=== PATIENT | female | born 1945 | race African-American/Black ===

== ENCOUNTER → 2017-09-06 | Outpatient (CLI) | payer OTHER ==
[2017-09-06] MEDS: IOHEXOL 240 MG/ML 50ML VIAL. PO ×2 (10:35)
[2017-09-06] MEDS: IOHEXOL 300 MG/ML 100ML VIAL. IV ×2 (11:07)
[2017-09-06 11:17] LABS: ISTAT CREATININE 0.7 mg/dL (0.6-1.1)
== END | disposition home or self-care (01) ==
LOC: KCIC CT 09:48
DX: K57.30 Diverticulosis of large intestine without perforation or abscess without bleeding (principal); K76.0 Fatty (change of) liver, not elsewhere classified; R16.0 Hepatomegaly, not elsewhere classified; K44.9 Diaphragmatic hernia without obstruction or gangrene; K76.9 Liver disease, unspecified; I51.7 Cardiomegaly; J98.11 Atelectasis
CPT/HCPCS: 74177; 82565; Q9966; Q9967

== ENCOUNTER 2018-10-17 07:48 | Inpatient (IN) | payer MEDICARE, OTHER ==
[~2018-10-17] VITALS: Ht 160 cm; Wt 99.8 kg
[~2018-10-17 07:48] MED LIST: ASCO1CAP2 PO; ASPI-482 PO; CARV25TA2 PO; DICY10CA3 PO; FERR325T58 PO; GARL10002 PO; Hydrocodone/Acetaminophen PO; LOSA100T14 PO; LOSA1TAB22 PO; LOSA25TA54 PO; MELO15TA23 PO; MULT-212 PO; OMEP40CA5 PO; OXYC1TAB15 PO; UBID50CA5 PO; WARF1TAB74 PO
[2018-10-17] MEDS ORDERED: IV NORMAL SALINE 1000ML BAG 1,000 ML IV SCH (08:11)
[2018-10-17] MEDS ORDERED: METOPROLOL TARTRATE 5 MG/5 ML VIAL. IVP ONE (08:15)
[2018-10-17] MEDS ORDERED: ASPIRIN CHEWABLE 81 MG TABLET. PO ONE (08:15)
--- NOTE | 2018-10-17 08:20 | PHYS DOC ---
Past Medical History Past Medical History: Arthritis, Asthma, Cancer, Diverticulitis, GERD, High Cholesterol, Hypertension, UTI Additional Past Medical Histor: esophagus CA Past Surgical History: Cholecystectomy, Knee Replacement, Tonsillectomy Alcohol Use: None Drug Use: None Adult General Chief Complaint Chief Complaint: ABDOMINAL PAIN HPI HPI Patient is a 73-year-old female who presents to the emergency department for evaluation. She states the past day or so she has had some left-sided abdominal pain, and about 3 hours before coming to the emergency department developed some anterior chest discomfort, with some radiation to her left arm and shoulder. She did have some shortness of breath which has resolved. There are no particular alleviating or exacerbating factors to the patient's symptoms. She denies any pleuritic pain. She has not had any cough, nausea, vomiting, diarrhea, or urinary symptoms. She has a history of hypertension, but states she has missed her medication for the past few days. Review of Systems Review of Systems Constitutional: Denies fever or chills [] Eyes: Denies change in visual acuity, redness, or eye pain [] HENT: Denies nasal congestion or sore throat [] Respiratory: Denies cough or runny chest pain[] Cardiovascular: No additional information not addressed in HPI [] GI: Denies nausea, vomiting, bloody stools or diarrhea [] : Denies dysuria or hematuria [] Musculoskeletal: Denies back pain or joint pain [] Integument: Denies rash or skin lesions [] Neurologic: Denies headache, focal weakness or sensory changes [] Endocrine: Denies polyuria or polydipsia [] All other systems were reviewed and found to be within normal limits, except as documented in this note. Current Medications Current Medications Current Medications Medications (Trade) Dose Ordered Sig/[facility] Start Time Stop Time Status Last Admin Dose Admin Aspirin (Children'S Aspirin) 162 mg 1X ONCE 10/17/18 08:15 10/17/18 08:16 DC 10/17/18 08:26 162 MG Fentanyl Citrate (Fentanyl 2ml Vial) 50 mcg PRN Q15MIN PRN 10/17/18 08:15 10/18/18 08:14 10/17/18 08:23 50 MCG Metoprolol Tartrate (Lopressor Vial) 5 mg 1X ONCE 10/17/18 08:15 10/17/18 08:16 DC 10/17/18 08:26 5 MG Sodium Chloride 1,000 ml @ 100 mls/hr Q10H 10/17/18 08:11 10/17/18 18:10 10/17/18 08:23 100 MLS/HR Allergies Allergies Allergies Coded Allergies Type Severity Reaction Last Updated Verified iodine Allergy Intermediate Rash 02/11/15 Yes acetaminophen Adverse Reaction Severe NAUSEA 02/11/15 Yes hydrocodone Adverse Reaction Severe NAUSEA 02/11/15 Yes morphine Adverse Reaction Severe NAUSEA 02/11/15 Yes Physical Exam Physical Exam PHYSICAL EXAM: CONSTITUTIONAL: Well developed, well nourished HEAD: normocephalic, atraumatic EENT: PERRL, EOMI. Conjunctivae normal color, sclerae non-icteric; moist mucous membranes. NECK: Supple, non-tender; no meningismus. LUNGS: Lungs CTA, breathing even and unlabored. Normal air movement. HEART: Regular rate and rhythm, no murmur CHEST: No deformity; non-tender ABDOMEN: The abdomen is soft, n there is tenderness to palpation of the left mid and lower abdomen, without any rebound or guarding, normal bowel sounds are present, no masses or bruits. EXTREM: Normal ROM; no deformity, no calf tenderness. Normal pulses palpable in all extremities. There is no pedal edema. SKIN: No rash; no diaphoresis NEURO: Alert; normal speech and cognition; CN's grossly intact; strength grossly intact without focal deficit. BACK: No CVA TTP. Current Patient Data Vital Signs Vital Signs Date Time Temp Pulse Resp B/P (MAP) Pulse Ox O2 Delivery O2 Flow Rate FiO2 10/17/18 09:02 67 20 196/81 (119) 97 Room Air 10/17/18 07:52 98.3 98.3 Lab Values Laboratory Tests Test 10/17/18 07:55 10/17/18 08:05 Urine Collection Type Void Urine Color Yellow Urine Clarity Clear Urine pH 7.0 Urine Specific [place] 1.010 Urine Protein Negative mg/dL (NEG-TRACE) Urine Glucose (UA) Negative mg/dL (NEG) Urine Ketones (Stick) Negative mg/dL (NEG) Urine Blood Negative (NEG) Urine Nitrite Negative (NEG) Urine Bilirubin Negative (NEG) Urine Urobilinogen Dipstick 0.2 mg/dL (0.2 mg/dL) Urine Leukocyte Esterase Negative (NEG) Urine RBC Occ /HPF (0-2) Urine WBC 1-4 /HPF (0-4) Urine Squamous Epithelial Cells Many /LPF Urine Bacteria Few /HPF (0-FEW) White Blood Count 8.5 x10^3/uL (4.0-11.0) Red Blood Count 4.79 x10^6/uL (3.50-5.40) Hemoglobin 14.1 g/dL (12.0-15.5) Hematocrit 42.8 % (36.0-47.0) Mean Corpuscular Volume 89 fL (79-100) Mean Corpuscular Hemoglobin 30 pg (25-35) Mean Corpuscular Hemoglobin Concent 33 g/dL (31-37) Red Cell Distribution Width 13.1 % (11.5-14.5) Platelet Count 218 x10^3/uL (140-400) Neutrophils (%) (Auto) 54 % (31-73) Lymphocytes (%) (Auto) 34 % (24-48) Monocytes (%) (Auto) 8 % (0-9) Eosinophils (%) (Auto) 3 % (0-3) Basophils (%) (Auto) 1 % (0-3) Neutrophils # (Auto) 4.6 x10^3uL (1.8-7.7) Lymphocytes # (Auto) 2.9 x10^3/uL (1.0-4.8) Monocytes # (Auto) 0.7 x10^3/uL (0.0-1.1) Eosinophils # (Auto) 0.3 x10^3/uL (0.0-0.7) Basophils # (Auto) 0.1 x10^3/uL (0.0-0.2) Prothrombin Time 12.7 SEC (11.7-14.0) Prothrombin Time INR 1.0 (0.8-1.1) Sodium Level 142 mmol/L (136-145) Potassium Level 3.7 mmol/L (3.5-5.1) Chloride Level 101 mmol/L (98-107) Carbon Dioxide Level 31 mmol/L (21-32) Anion Gap 10 (6-14) Blood Urea Nitrogen 9 mg/dL (7-20) Creatinine 0.8 mg/dL (0.6-1.0) Estimated GFR (Cockcroft-Gault) 85.3 BUN/Creatinine Ratio 11 (6-20) Glucose Level 129 mg/dL (70-99) H Calcium Level 9.6 mg/dL (8.5-10.1) Total Bilirubin 0.6 mg/dL (0.2-1.0) Aspartate Amino Transferase (AST) 47 U/L (15-37) H Alanine Aminotransferase (ALT) 57 U/L (14-59) Alkaline Phosphatase 103 U/L (46-116) Creatine Kinase 64 U/L (26-192) Creatine Kinase MB (Mass) < 0.5 ng/mL (0.0-3.6) Creatine Kinase MB Relative Index % (0-4) Troponin I Quantitative < 0.017 ng/mL (0.000-0.055) HA-Uno-X-Type Natriuretic Peptide 23 pg/mL (0-124) Total Protein 8.8 g/dL (6.4-8.2) H Albumin 3.8 g/dL (3.4-5.0) Albumin/Globulin Ratio 0.8 (1.0-1.7) L Lipase 75 U/L (73-393) Laboratory Tests 10/17/18 08:05 Laboratory Tests 10/17/18 08:05 EKG EKG Normal sinus rhythm at a rate of 86 beats for minute, normal axis, normal intervals, poor anterior R-wave progression without acute ischemic ST/T changes. Nonspecific changes are present.[] Radiology/Procedures Radiology/Procedures [PROCEDURE: PORTABLE CHEST 1V PORTABLE CHEST 1V Clinical Indication: CHEST PAIN AND JAW PAIN ON LEFT SIDE SINCE EARLY AM Comparison: Two-view chest, January 27, 2015. Findings: The cardiomediastinal silhouette is normal. Lungs are clear. There is no pneumothorax. No pleural effusion is appreciated. No acute bone abnormality. Degenerative endplate spurring of the thoracic spine. IMPRESSION: No acute cardiopulmonary process.] PROCEDURE: CT ABDOMEN PELVIS WO CONTRAST CT abdomen pelvis without contrast dated 10/17/2018. Comparison made to 09/06/2017. CLINICAL INDICATION: Left-sided pain. TECHNIQUE: Contiguous axial imaging the abdomen and pelvis performed without the administration of IV or oral contrast. One or more of the following individualized dose reduction techniques were utilized for this examination: 1. Automated exposure control 2. Adjustment of the mA and/or kV according to patient size 3. Use of iterative reconstruction technique. FINDINGS: Limited images of lung bases are clear. Heart size upper limits of normal. No pleural or pericardial effusion. Solid abdominal viscera not well evaluated in the absence of contrast material. There are vague low-density foci scattered within the left and right lobe liver that are indeterminate but unchanged from prior study. No biliary ductal dilatation. The gallbladder is surgically absent. Mild prominence of the extra hepatic biliary tree, unchanged from prior exam. Spleen is normal in size. Pancreas, adrenal glands and kidneys are unremarkable. No hydronephrosis. Unopacified GI tract normal in caliber and contour. No focal bowel wall thickening. Scattered diverticula throughout the colon. No paracolonic inflammatory changes in the appendix is normal in caliber. No ascites or lymphadenopathy. Abdominal aorta normal in caliber. Images the pelvis show nondistended urinary bladder. Uterus and adnexa are unremarkable. No free pelvic fluid or pelvic lymphadenopathy. Bone windows show no acute findings. Mild multilevel spondylosis. IMPRESSION: 1. No acute abnormality of abdomen or pelvis. Normal appendix. 2. Diverticulosis with no evidence of acute diverticulitis. 3. There are a few small low-density foci scattered throughout the liver that are indeterminate but unchanged from the prior exam and probably benign. Course & Med Decision Making Course & Med Decision Making Pertinent Labs and Imaging studies reviewed. (See chart for details) [10:15 AM: The patient's condition remained stable. I do not have a clear Patient for her symptoms, I discussed the case with Dr Juan, who is covering for her PCP, who will admit the patient for further cardiac evaluation. Her blood pressure is currently 172/74.] Dragon Disclaimer Dragon Disclaimer This electronic medical record was generated, in whole or in part, using a voice recognition dictation system. Departure Departure Impression: Primary Impression: Chest pain Additional Impression: Abdominal pain Disposition: ADMITTED INPATIENT Admitting Physician: Jose Luis Juan Condition: STABLE Referrals: NO PCP (PCP) Problem Qualifiers TASHIA SINGLETARY MD Oct 17, 2018 08:20
[2018-10-17] MEDS: fentaNYL PF VIAL 100 MCG/2 ML VIAL IV PRN ×2 (08:23→10:59)
[2018-10-17 08:32] LABS: BASO # 0.1 x10^3/uL (0.0-0.2); BASO % 1 % (0-3); EOS # 0.3 x10^3/uL (0.0-0.7); EOS % 3 % (0-3); HEMATOCRIT 42.8 % (36.0-47.0); HEMOGLOBIN 14.1 g/dL (12.0-15.5); LYMPH # 2.9 x10^3/uL (1.0-4.8); LYMPH % 34 % (24-48); MEAN CORPUSCULAR HEMOGLOBIN 30 pg (25-35); MEAN CORPUSCULAR HGB CONC 33 g/dL (31-37); MEAN CORPUSCULAR VOLUME 89 fL (79-100); MONO # 0.7 x10^3/uL (0.0-1.1); MONO % 8 % (0-9); NEUT # 4.6 x10^3uL (1.8-7.7); NEUT % 54 % (31-73); PLATELET COUNT 218 x10^3/uL (140-400); RED BLOOD COUNT 4.79 x10^6/uL (3.50-5.40); RED CELL DISTRIBUTION WIDTH 13.1 % (11.5-14.5); WHITE BLOOD COUNT 8.5 x10^3/uL (4.0-11.0)
[2018-10-17 08:32] LABS: BILIRUBIN,URINE NEGATIVE (NEG); CLARITY,URINE CLEAR; COLOR,URINE YELLOW; NITRITE,URINE NEGATIVE (NEG); PROTEIN,URINE NEGATIVE (NEG-TRACE); UROBILINOGEN,URINE 0.2 mg/dL (0.2 mg/dL)
[2018-10-17 08:35] LABS: CALCIUM 9.6 mg/dL (8.5-10.1); CREATININE 0.8 mg/dL (0.6-1.0); GFR 85.3; POTASSIUM 3.7 mmol/L (3.5-5.1)
[2018-10-17 08:36] LABS: PROTHROMBIN TIME PATIENT 12.7 SEC (11.7-14.0)
--- NOTE | 2018-10-17 08:38 | RAD ---
PORTABLE CHEST 1V Clinical Indication: CHEST PAIN AND JAW PAIN ON LEFT SIDE SINCE EARLY AM Comparison: Two-view chest, January 27, 2015. Findings: The cardiomediastinal silhouette is normal. Lungs are clear. There is no pneumothorax. No pleural effusion is appreciated. No acute bone abnormality. Degenerative endplate spurring of the thoracic spine. IMPRESSION: No acute cardiopulmonary process. Electronically signed by: Yinka Recio MD (10/17/2018 8:35 AM) [id number]
[2018-10-17 08:41] LABS: ALBUMIN 3.8 g/dL (3.4-5.0); ALBUMIN/GLOBULIN RATIO 0.8 (1.0-1.7); TOTAL BILIRUBIN 0.6 mg/dL (0.2-1.0); TOTAL PROTEIN 8.8 g/dL (6.4-8.2)
[2018-10-17 08:44] LABS: BACTERIA,URINE FEW /HPF (0-FEW); RBC,URINE OCC /HPF (0-2); SQUAMOUS EPITHELIAL CELL,UR MANY /LPF
[2018-10-17 08:55] LABS: CREATINE KINASE 64 U/L (26-192)
--- NOTE | 2018-10-17 09:11 | EKG ---
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
--- NOTE | 2018-10-17 09:47 | RAD ---
CT abdomen pelvis without contrast dated 10/17/2018. Comparison made to 09/06/2017. CLINICAL INDICATION: Left-sided pain. TECHNIQUE: Contiguous axial imaging the abdomen and pelvis performed without the administration of IV or oral contrast. One or more of the following individualized dose reduction techniques were utilized for this examination: 1. Automated exposure control 2. Adjustment of the mA and/or kV according to patient size 3. Use of iterative reconstruction technique. FINDINGS: Limited images of lung bases are clear. Heart size upper limits of normal. No pleural or pericardial effusion. Solid abdominal viscera not well evaluated in the absence of contrast material. There are vague low-density foci scattered within the left and right lobe liver that are indeterminate but unchanged from prior study. No biliary ductal dilatation. The gallbladder is surgically absent. Mild prominence of the extra hepatic biliary tree, unchanged from prior exam. Spleen is normal in size. Pancreas, adrenal glands and kidneys are unremarkable. No hydronephrosis. Unopacified GI tract normal in caliber and contour. No focal bowel wall thickening. Scattered diverticula throughout the colon. No paracolonic inflammatory changes in the appendix is normal in caliber. No ascites or lymphadenopathy. Abdominal aorta normal in caliber. Images the pelvis show nondistended urinary bladder. Uterus and adnexa are unremarkable. No free pelvic fluid or pelvic lymphadenopathy. Bone windows show no acute findings. Mild multilevel spondylosis. IMPRESSION: 1. No acute abnormality of abdomen or pelvis. Normal appendix. 2. Diverticulosis with no evidence of acute diverticulitis. 3. There are a few small low-density foci scattered throughout the liver that are indeterminate but unchanged from the prior exam and probably benign. Electronically signed by: David Arias MD (10/17/2018 9:44 AM) [id number]
[2018-10-17] MEDS ORDERED: amLODIPine BESYLATE 5 MG TABLET PO ONE (10:45)
[2018-10-17] MEDS ORDERED: OMEP40CA5 PO (14:44)
[2018-10-17] MEDS ORDERED: AMLO5TAB10 PO (14:44)
[2018-10-17] MEDS ORDERED: DICY20TA3 PO (14:44)
--- NOTE | 2018-10-17 14:55 | PDOC2 ---
JEANETTE BORDEN INDEPENDENT CONSULTANT 10/17/18 1455: CARDIAC CONSULT DATE OF CONSULT Date of Consult DATE: 10/17/18 TIME: 14:53 REASON FOR CONSULT Reason for Consult: Chest pain REFERRING PHYSICIAN Referring Physician: Dr. Abarca SOURCE Source: Chart review, Patient HISTORY OF PRESENT ILLNESS HISTORY OF PRESENT ILLNESS This is a 73 yo female who presented with abdominal pain. Reports having left lower quadrant pain that radiates around to her back. Present for the last couple of days. Has been constant. This morning, developed left chest pain. Radiated to her left neck and to her left shoulder. Associated with shortness of breath and dizziness. No diaphoresis , palpitations, or nausea/vomiting. No specific worsening factors. Does have a history of hypertension. Missed her medications the last couple of days. BP significantly elevated upon arrival, which patient reports as usual for her when she is in pain. Reports having occasional palpitations, irregular heart beat. NO diagnosis of AFIB. PAST MEDICAL HISTORY Cardiovascular: CHF, HTN, Hyperlipidemia Pulmonary: No pertinent hx CENTRAL NERVOUS SYSTEM: Other (no pertinent hx) GI: Diverticulosis, GERD, Other (Barretts esophagus ) Heme/Onc: No pertinent hx Hepatobiliary: No pertinent hx Psych: No pertinent hx Musculoskeletal: Osteoarthritis Rheumatologic: No pertinent hx Infectious disease: No pertinent hx ENT: No pertinent hx Renal/: No pertinent hx Endocrine: Diabetes Dermatology: No pertinent hx PAST SURGICAL HISTORY Past Surgical History: Cholecystectomy, Total knee replacement (bilateral ), Tonsillectomy FAMILY HISTORY Family History: Coronary Artery Disease, Heart Disease, Hypertension SOCIAL HISTORY Smoke: No ALCOHOL: none Drugs: None Lives: Alone CURRENT MEDICATIONS CURRENT MEDICATIONS Current Medications Medications (Trade) Dose Ordered Sig/Yvan Route PRN Reason Start Time Stop Time Status Last Admin Dose Admin Aspirin (Children'S Aspirin) 162 mg 1X ONCE PO 10/17/18 08:15 10/17/18 08:16 DC 10/17/18 08:26 Metoprolol Tartrate (Lopressor Vial) 5 mg 1X ONCE IVP 10/17/18 08:15 10/17/18 08:16 DC 10/17/18 08:26 Fentanyl Citrate (Fentanyl 2ml Vial) 50 mcg PRN Q15MIN PRN IV PAIN GREATER THAN 10/1510/17/18 08:15 10/18/18 08:14 10/17/18 10:59 Sodium Chloride 1,000 ml @ 100 mls/hr Q10H IV 10/17/18 08:11 10/17/18 18:10 10/17/18 08:23 Amlodipine Besylate (Norvasc) 5 mg 1X ONCE PO 10/17/18 10:45 10/17/18 10:46 DC 10/17/18 10:58 ALLERGIES ALLERGIES: Coded Allergies: iodine (Verified Allergy, Intermediate, Rash, 02/11/15) acetaminophen (Verified Adverse Reaction, Severe, NAUSEA, 02/11/15) hydrocodone (Verified Adverse Reaction, Severe, NAUSEA, 02/11/15) morphine (Verified Adverse Reaction, Severe, NAUSEA, 02/11/15) ROS Review of System 14 point ROS conducted with pertinent positives noted above in HPI. PHYSICAL EXAM General: Alert, Oriented X3, Cooperative, No acute distress HEENT: Atraumatic, Mucous membr. moist/pink Lungs: Clear to auscultation, Normal air movement Heart: Regular rate, Normal S1, Normal S2 Abdomen: Soft, No tenderness Extremities: No edema, Normal pulses Skin: No significant lesion Neuro: Normal speech, Strength at 5/5 X4 ext, Sensation intact Psych/Mental Status: Mental status NL, Mood NL MUSCULOSKELETAL: Osteoarthritic changes both hands VITALS VITALS Vital Signs Date Time Temp Pulse Resp B/P (MAP) Pulse Ox O2 Delivery O2 Flow Rate FiO2 10/17/18 10:58 71 203/100 10/17/18 10:00 18 96 Room Air 10/17/18 07:52 98.3 98.3 LABS Lab: Laboratory Tests Test 10/17/18 07:55 10/17/18 08:05 10/17/18 13:35 Urine Collection Type Void Urine Color Yellow Urine Clarity Clear Urine pH 7.0 Urine Specific [place] 1.010 Urine Protein Negative mg/dL (NEG-TRACE) Urine Glucose (UA) Negative mg/dL (NEG) Urine Ketones (Stick) Negative mg/dL (NEG) Urine Blood Negative (NEG) Urine Nitrite Negative (NEG) Urine Bilirubin Negative (NEG) Urine Urobilinogen Dipstick 0.2 mg/dL (0.2 mg/dL) Urine Leukocyte Esterase Negative (NEG) Urine RBC Occ /HPF (0-2) Urine WBC 1-4 /HPF (0-4) Urine Squamous Epithelial Cells Many /LPF Urine Bacteria Few /HPF (0-FEW) White Blood Count 8.5 x10^3/uL (4.0-11.0) Red Blood Count 4.79 x10^6/uL (3.50-5.40) Hemoglobin 14.1 g/dL (12.0-15.5) Hematocrit 42.8 % (36.0-47.0) Mean Corpuscular Volume 89 fL (79-100) Mean Corpuscular Hemoglobin 30 pg (25-35) Mean Corpuscular Hemoglobin Concent 33 g/dL (31-37) Red Cell Distribution Width 13.1 % (11.5-14.5) Platelet Count 218 x10^3/uL (140-400) Neutrophils (%) (Auto) 54 % (31-73) Lymphocytes (%) (Auto) 34 % (24-48) Monocytes (%) (Auto) 8 % (0-9) Eosinophils (%) (Auto) 3 % (0-3) Basophils (%) (Auto) 1 % (0-3) Neutrophils # (Auto) 4.6 x10^3uL (1.8-7.7) Lymphocytes # (Auto) 2.9 x10^3/uL (1.0-4.8) Monocytes # (Auto) 0.7 x10^3/uL (0.0-1.1) Eosinophils # (Auto) 0.3 x10^3/uL (0.0-0.7) Basophils # (Auto) 0.1 x10^3/uL (0.0-0.2) Prothrombin Time 12.7 SEC (11.7-14.0) Prothromb Time International Ratio 1.0 (0.8-1.1) Sodium Level 142 mmol/L (136-145) Potassium Level 3.7 mmol/L (3.5-5.1) Chloride Level 101 mmol/L (98-107) Carbon Dioxide Level 31 mmol/L (21-32) Anion Gap 10 (6-14) Blood Urea Nitrogen 9 mg/dL (7-20) Creatinine 0.8 mg/dL (0.6-1.0) Estimated GFR (Cockcroft-Gault) 85.3 BUN/Creatinine Ratio 11 (6-20) Glucose Level 129 mg/dL (70-99) Calcium Level 9.6 mg/dL (8.5-10.1) Total Bilirubin 0.6 mg/dL (0.2-1.0) Aspartate Amino Transf (AST/SGOT) 47 U/L (15-37) Alanine Aminotransferase (ALT/SGPT) 57 U/L (14-59) Alkaline Phosphatase 103 U/L (46-116) Creatine Kinase 64 U/L (26-192) Creatine Kinase MB (Mass) < 0.5 ng/mL (0.0-3.6) Creatine Kinase MB Relative Index % (0-4) Troponin I Quantitative < 0.017 ng/mL (0.000-0.055) < 0.017 ng/mL (0.000-0.055) II-Nzm-Y-Type Natriuretic Peptide 23 pg/mL (0-124) Total Protein 8.8 g/dL (6.4-8.2) Albumin 3.8 g/dL (3.4-5.0) Albumin/Globulin Ratio 0.8 (1.0-1.7) Lipase 75 U/L (73-393) ASSESSMENT/PLAN ASSESSMENT/PLAN 1. Chest pain; mixed feature. Most probably induced by #2 secondary to combination of miss medications and acute pain. AMI ruled out 2. Accelerated hypertension; remains elevated 3. Abdominal pain; CT with diverticulosis. No other acute findings 4. Hyperlipidemia Recommendations Resume Norvasc Add lisinopril Hydralazine IV PRN ASA Echo to assess LV systolic function Lipids If echo WNL, consider outpatient ischemic evaluation MASTER PURVIS MD 10/17/18 1753: CARDIAC CONSULT ASSESSMENT/PLAN ASSESSMENT/PLAN Pt. seen and examined. 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 Continue meds. Await echo. EKG unremarkable JEANETTE BORDEN APRN Oct 17, 2018 14:55 MASTER PURVIS MD Oct 17, 2018 17:53
[2018-10-17 15:00] VITALS: BP 157/73
[2018-10-17] MEDS ORDERED: hydrALAZINE 20 MG/ML VIAL. IVP PRN (15:15)
[2018-10-17] MEDS ORDERED: ASPI-612 PO (15:21)
[2018-10-17 19:52] VITALS: BP 144/52
[2018-10-17] MEDS ORDERED: fentaNYL PF VIAL 100 MCG/2 ML VIAL IV PRN (20:00)
[2018-10-17 23:21] VITALS: BP 121/43
[2018-10-18 03:15] VITALS: BP 115/51
[2018-10-18 05:02] LABS: CHOLESTEROL/HDL RATIO 2.8
[2018-10-18 07:00] VITALS: BP 161/77
[2018-10-18] MEDS: ASPIRIN ENTERIC COATED 81 MG TABLET.DR. PO SCH (08:40)
[2018-10-18] MEDS: LISINOPRIL 10 MG TABLET PO SCH (08:40)
[2018-10-18] MEDS ORDERED: LIDO:MAALOX 1:1 20 ML SINGLE DOSE. SWSW ONE (08:45)
--- NOTE | 2018-10-18 08:49 | PDOC1 ---
History and Physical Date of Admission Date of Admission 10/17/18 Identification/Chief Complaint Chief Complaint Abdominal pain that radiated to left chest Source Source: Patient History of Present Illness History of Present Illness Pt states that she has been having a lot of abdominal pain. Pt states that the pain starts at her diaphragm and then was radiating up her left side wrapping around to her back. She says that she has been having this pain for a while, but yesterday got significantly worse. Pt follows with GI for this. Recently was started on dicyclomine; she is unsure if it is helping or not. They had discussed doing some further workup on her but she has not returned for follow up yet. She often has a lot of gas. She is feeling better but is still requiring the IV pain medication to control her pain. Pt states that when she is having significant pain her BP increases. Had regular diet yesterday, clear liquids this morning. Past Medical History Cardiovascular: CHF, HTN, Hyperlipidemia Pulmonary: No pertinent hx CENTRAL NERVOUS SYSTEM: Periperal neuropathy, Other (no pertinent hx) GI: Constipation, Diverticulosis, GERD, Other (Barretts esophagus ) Heme/Onc: No pertinent hx Hepatobiliary: No pertinent hx Psych: No pertinent hx Rheumatologic: No pertinent hx Infectious disease: No pertinent hx ENT: No pertinent hx Renal/: No pertinent hx Endocrine: No pertinent hx Dermatology: No pertinent hx Past Surgical History Past Surgical History: Cholecystectomy, Total knee replacement (bilateral ), Tonsillectomy Family History Family History: Coronary Artery Disease, Heart Disease, Hypertension Social History Smoke: No ALCOHOL: none Drugs: None Current Problem List Problem List Problems Medical Problems: (1) Abdominal pain Status: Acute (2) Chest pain Status: Acute Current Medications Current Medications Current Medications Medications (Trade) Dose Ordered Sig/Yvan Start Time Stop Time Status Last Admin Dose Admin Amlodipine Besylate (Norvasc) 5 mg DAILY 10/18/18 09:00 Aspirin (Children'S Aspirin) 162 mg 1X ONCE 10/17/18 08:15 10/17/18 08:16 DC 10/17/18 08:26 162 MG Aspirin (Ecotrin) 81 mg [id number] 10/18/18 08:00 Fentanyl Citrate (Fentanyl 2ml Vial) 25 mcg PRN Q6HRS PRN 10/17/18 20:00 10/17/18 20:59 25 MCG Hydralazine HCl (Apresoline Inj) 10 mg PRN Q4HRS PRN 10/17/18 15:15 Influenza Virus Vaccine (Afluria Trivalent [id number] Syringe) 0.5 ml ONCE ONCE 10/17/18 15:15 10/17/18 15:16 DC Lisinopril (Prinivil) 10 mg DAILY 10/18/18 09:00 Metoprolol Tartrate (Lopressor Vial) 5 mg 1X ONCE 10/17/18 08:15 10/17/18 08:16 DC 10/17/18 08:26 5 MG Sodium Chloride 1,000 ml @ 100 mls/hr Q10H 10/17/18 08:11 10/17/18 18:10 DC 10/17/18 08:23 100 MLS/HR Allergies Allergies Allergies Coded Allergies Type Severity Reaction Last Updated Verified iodine Allergy Intermediate Rash 02/11/15 Yes acetaminophen Adverse Reaction Severe NAUSEA 02/11/15 Yes hydrocodone Adverse Reaction Severe NAUSEA 02/11/15 Yes morphine Adverse Reaction Severe NAUSEA 02/11/15 Yes ROS Review of System CONSTITUTIONAL: No fever, +chills EYES: No recent changes SKIN: No rash or itching CARDIOVASCULAR: No chest pain, syncope, palpitations, or edema RESPIRATORY: No SOB or cough GASTROINTESTINAL: No vomiting, +nausea, abdominal pain NEUROLOGICAL: No headaches or weakness ENDOCRINE: No cold or heat intolerance GENITOURINARY: No urgency or frequency of urination MUSCULOSKELETAL: No joint pain, +low back pain LYMPHATICS: No enlarged lymph nodes PSYCHIATRIC: No anxiety or depression Physical Exam Physical Exam GEN.: No apparent distress. Alert and oriented. Belching often HEENT: Head is normocephalic, atraumatic NECK: Supple. LUNGS: Clear to auscultation. HEART: RRR, S1, S2 present. Peripheral pulses intact ABDOMEN: Soft, nontender. Positive bowel sounds. EXTREMITIES: Without any cyanosis. NEUROLOGIC: Normal speech, normal tone PSYCHIATRIC: Normal affect, normal mood. SKIN: No ulcerations Vitals Vitals Vital Signs Date Time Temp Pulse Resp B/P (MAP) Pulse Ox O2 Delivery O2 Flow Rate FiO2 10/18/18 07:00 98.2 80 16 161/77 (105) 98 Room Air 98.2 Labs Labs Laboratory Tests Test 10/17/18 07:55 10/17/18 08:05 10/17/18 13:35 10/17/18 18:00 Urine Collection Type Void Urine Color Yellow Urine Clarity Clear Urine pH 7.0 Urine Specific [place] 1.010 Urine Protein Negative mg/dL (NEG-TRACE) Urine Glucose (UA) Negative mg/dL (NEG) Urine Ketones (Stick) Negative mg/dL (NEG) Urine Blood Negative (NEG) Urine Nitrite Negative (NEG) Urine Bilirubin Negative (NEG) Urine Urobilinogen Dipstick 0.2 mg/dL (0.2 mg/dL) Urine Leukocyte Esterase Negative (NEG) Urine RBC Occ /HPF (0-2) Urine WBC 1-4 /HPF (0-4) Urine Squamous Epithelial Cells Many /LPF Urine Bacteria Few /HPF (0-FEW) White Blood Count 8.5 x10^3/uL (4.0-11.0) Red Blood Count 4.79 x10^6/uL (3.50-5.40) Hemoglobin 14.1 g/dL (12.0-15.5) Hematocrit 42.8 % (36.0-47.0) Mean Corpuscular Volume 89 fL (79-100) Mean Corpuscular Hemoglobin 30 pg (25-35) Mean Corpuscular Hemoglobin Concent 33 g/dL (31-37) Red Cell Distribution Width 13.1 % (11.5-14.5) Platelet Count 218 x10^3/uL (140-400) Neutrophils (%) (Auto) 54 % (31-73) Lymphocytes (%) (Auto) 34 % (24-48) Monocytes (%) (Auto) 8 % (0-9) Eosinophils (%) (Auto) 3 % (0-3) Basophils (%) (Auto) 1 % (0-3) Neutrophils # (Auto) 4.6 x10^3uL (1.8-7.7) Lymphocytes # (Auto) 2.9 x10^3/uL (1.0-4.8) Monocytes # (Auto) 0.7 x10^3/uL (0.0-1.1) Eosinophils # (Auto) 0.3 x10^3/uL (0.0-0.7) Basophils # (Auto) 0.1 x10^3/uL (0.0-0.2) Prothrombin Time 12.7 SEC (11.7-14.0) Prothromb Time International Ratio 1.0 (0.8-1.1) Sodium Level 142 mmol/L (136-145) Potassium Level 3.7 mmol/L (3.5-5.1) Chloride Level 101 mmol/L (98-107) Carbon Dioxide Level 31 mmol/L (21-32) Anion Gap 10 (6-14) Blood Urea Nitrogen 9 mg/dL (7-20) Creatinine 0.8 mg/dL (0.6-1.0) Estimated GFR (Cockcroft-Gault) 85.3 BUN/Creatinine Ratio 11 (6-20) Glucose Level 129 mg/dL (70-99) Calcium Level 9.6 mg/dL (8.5-10.1) Total Bilirubin 0.6 mg/dL (0.2-1.0) Aspartate Amino Transf (AST/SGOT) 47 U/L (15-37) Alanine Aminotransferase (ALT/SGPT) 57 U/L (14-59) Alkaline Phosphatase 103 U/L (46-116) Creatine Kinase 64 U/L (26-192) Creatine Kinase MB (Mass) < 0.5 ng/mL (0.0-3.6) Creatine Kinase MB Relative Index % (0-4) Troponin I Quantitative < 0.017 ng/mL (0.000-0.055) < 0.017 ng/mL (0.000-0.055) < 0.017 ng/mL (0.000-0.055) CM-Qgh-S-Type Natriuretic Peptide 23 pg/mL (0-124) Total Protein 8.8 g/dL (6.4-8.2) Albumin 3.8 g/dL (3.4-5.0) Albumin/Globulin Ratio 0.8 (1.0-1.7) Lipase 75 U/L (73-393) Test 10/18/18 03:35 Triglycerides Level 59 mg/dL (0-150) Cholesterol Level 175 mg/dL (0-200) LDL Cholesterol, Calculated 100 mg/dL (0-100) VLDL Cholesterol, Calculated 12 mg/dL (0-40) Non-HDL Cholesterol Calculated 112 mg/dL (0-129) HDL Cholesterol 63 mg/dL (40-60) Cholesterol/HDL Ratio 2.8 Laboratory Tests Test 10/17/18 13:35 10/17/18 18:00 10/18/18 03:35 Troponin I Quantitative < 0.017 ng/mL (0.000-0.055) < 0.017 ng/mL (0.000-0.055) Triglycerides Level 59 mg/dL (0-150) Cholesterol Level 175 mg/dL (0-200) LDL Cholesterol, Calculated 100 mg/dL (0-100) VLDL Cholesterol, Calculated 12 mg/dL (0-40) Non-HDL Cholesterol Calculated 112 mg/dL (0-129) HDL Cholesterol 63 mg/dL (40-60) Cholesterol/HDL Ratio 2.8 VTE Prophylaxis Ordered VTE Prophylaxis Devices: No VTE Pharmacological Prophylaxi: No Assessment/Plan Assessment/Plan Pt is a 73yo AAF admitted for abdominal pain and chest pain 1)Abdominal pain- acute on chronic. Pt is getting workup done by her GI doctor. Discussed trying to get her back to her normal level of pain. Will resume pt's dicyclomine and omeprazole. Will give GI cocktail. Goal for possible discharge later today if pt continues to improve 2)Chest pain- no acute VT. Cardiology following. ECHO pending 3)HTN- pt has not been taking HCTZ/Losartan or Hydralazine; only taking Norvasc. Pt resumed on this by Cardiology as well as Lisinopril 10mg. CTM 4)HLD 5)Hyperglycemia- HBA1C pending KATY LECHUGA MD Oct 18, 2018 08:49
[2018-10-18] MEDS ORDERED: ASPIRIN ENTERIC COATED 81 MG TABLET.DR. PO SCH (09:00)
[2018-10-18] MEDS ORDERED: amLODIPine BESYLATE 5 MG TABLET PO SCH (09:00)
[2018-10-18] MEDS: DICYCLOMINE HCL 10 MG CAPSULE PO SCH ×3 (10:12→21:40)
[2018-10-18] MEDS: PANTOPRAZOLE 40 MG TABLET.DR. PO SCH (10:12)
[2018-10-18 11:00] VITALS: BP 150/75
--- NOTE | 2018-10-18 12:44 | CARD ---
MR#: [id number] Date of Study: 10/18/2018 Ordering Physician: JEANETTE BORDEN, Referring Physician: KATY LECHUGA Tech: Lisa Contreras BAILEY APPROVED REPORT EXAM: Two-dimensional and M-mode echocardiogram with Doppler and color Doppler. Other Information Quality : AverageHR: 66bpm Rhythm : NSRTechnically limited study due to body habitus. INDICATION Chest Pain 2D DIMENSIONS RVDd2.9 (2.9-3.5cm)Left Atrium(2D)3.1 (1.6-4.0cm) IVSd1.0 (0.7-1.1cm)Aortic Root(2D)2.6 (2.0-3.7cm) LVDd5.1 (3.9-5.9cm)LVOT Diameter1.9 (1.8-2.4cm) PWd0.8 (0.7-1.1cm)LVDs3.7 (2.5-4.0cm) FS (%) 28.0 %SV66.8 ml LVEF(%)53.8 (>50%) M-Mode DIMENSIONS Left Atrium(MM)3.22 (2.5-4.0cm)Aortic Root3.04 (2.2-3.7cm) Aortic Valve AoV Peak Paulino.153.9cm/sAoV VTI38.7cm AO Peak GR.9.5mmHgLVOT Peak Paulino.110.8cm/s AO Mean GR.5mmHgAVA (VMAX)2.13cm2 TATYANA (VTI)2.20cm2 Mitral Valve MV E Lvbrebmx102.5cm/sMV DECEL ADIB472km MV A Ypgiskxp478.7cm/sE/A Ratio1.0 MV A Xzkvbpls807xu Pulmonary Valve PV Peak Efaxrdlv081.1cm/s Tricuspid Valve TR P. Fxqxgzlw907cq/sRAP NLEONIIC9coKv TR Peak Gr.18bzUtMHIO10mzXl LEFT VENTRICLE The left ventricle is normal size. There is normal left ventricular wall thickness. The left ventricu lar systolic function is normal and the ejection fraction is within normal range. The Ejection Fracti on is 55%. There is normal LV segmental wall motion. Transmitral Doppler flow pattern is Grade I-abno rmal relaxation pattern. RIGHT VENTRICLE The right ventricle is normal size. There is normal right ventricular wall thickness. The right ventr icular systolic function is normal. ATRIA The left atrium size is normal. The right atrium size is normal. The interatrial septum is intact wit h no evidence for an atrial septal defect or patent foramen ovale as noted on 2-D or Doppler imaging. AORTIC VALVE The aortic valve is normal in structure and function. The aortic valve is trileaflet. Doppler and Col or Flow revealed no significant aortic regurgitation. There is no significant aortic valvular stenosi s. MITRAL VALVE The mitral valve is normal in structure and function. There is no evidence of mitral valve prolapse. There is no mitral valve stenosis. Doppler and Color-flow revealed trace mitral regurgitation. TRICUSPID VALVE The tricuspid valve is normal in structure and function. Doppler and Color Flow revealed trace tricus pid regurgitation. There is mild pulmonary hypertension. The PA pressure was estimated at 33 mmHg. Th ere is no tricuspid valve prolapse or vegetation. There is no tricuspid valve stenosis. PULMONIC VALVE The pulmonary valve is normal in structure and function. Doppler and Color Flow revealed no pulmonic valvular regurgitation. There is no pulmonic valvular stenosis. GREAT VESSELS The aortic root is normal in size. The ascending aorta is normal in size. The IVC is normal in size a nd collapses >50% with inspiration. PERICARDIAL EFFUSION There is a trace pericardial effusion. Critical Notification Critical Value: No <Conclusion> The left ventricular systolic function is normal and the ejection fraction is within normal range. Th e Ejection Fraction is 55%. There is normal LV segmental wall motion. There is a trace pericardial effusion. Doppler and Color Flow revealed trace tricuspid regurgitation. There is mild pulmonary hypertension. The PA pressure was estimated at 33 mmHg. Signed by : Terence Sharp, Electronically Approved : 10/18/2018 12:44:09
--- NOTE | 2018-10-18 14:53 | NUR ---
SW following pt for anticipated dc needs. Chart reviewed. Pt lives at home and on room air. No discharge recommendations or SW needs noted at this time. Will continue to assess dc needs.
[2018-10-18 15:00] VITALS: BP 156/71
[2018-10-18 19:35] VITALS: BP 115/49
--- NOTE | 2018-10-18 19:51 | PDOC ---
Provider Note Provider Note Cardiology Follow up note: Echo reviewed. No significant abn. Trop negative. Cardiac exam wnl. Supportive care from CV standpoint. Increased amlodipine to 10mg daily. Continue lisinopril. Ok to DC from CV standpoint. Will f/u in the office prn. Continue GI w/u per PCP. thanks. MASTER PURVIS MD Oct 18, 2018 19:51
[2018-10-18] MEDS ORDERED: NON FORMULARY ITEM (Dicyclomine Hcl 1 TAB) PO PRN (22:15)
[2018-10-18] MEDS ORDERED: ZOLPIDEM 5 MG TABLET. PO PRN (23:00)
[2018-10-18 23:02] VITALS: BP 116/50
[2018-10-18 23:10] LABS: HEMOGLOBIN A1C 5.3 % (4.8-5.6)
[2018-10-19 03:08] VITALS: BP 129/57
[2018-10-19 07:15] VITALS: BP 151/72
[2018-10-19] MEDS ORDERED: amLODIPine BESYLATE 10 MG TABLET PO SCH (09:00)
[2018-10-19] MEDS: DICYCLOMINE HCL 10 MG CAPSULE PO SCH (09:00)
[2018-10-19] MEDS: PANTOPRAZOLE 40 MG TABLET.DR. PO SCH (09:00)
[2018-10-19] MEDS ORDERED: MULTIVITAMIN with MINERAL TABLET. PO SCH (09:00)
[2018-10-19] MEDS: ASPIRIN ENTERIC COATED 81 MG TABLET.DR. PO SCH (09:00)
[2018-10-19] MEDS: LISINOPRIL 10 MG TABLET PO SCH (09:00)
[2018-10-19] MEDS ORDERED: LISI10TA2 PO (10:56)
[2018-10-19] MEDS ORDERED: AMLO10TA8 PO (10:56)
[2018-10-19 11:09] VITALS: BP 144/74
--- NOTE | 2018-10-19 12:11 | DS ---
DATE OF DISCHARGE: 10/19/2018 ADMITTING DIAGNOSIS: Chest pain. SECONDARY DIAGNOSIS: Abdominal pain. DISMISSAL DIAGNOSES: Irritable bowel syndrome and hypertensive emergency. SECONDARY DIAGNOSES: 1. Chest wall pain. 2. Reflux disease. 3. Hypertension. 4. High cholesterol. 5. Glucose intolerance with normal A1c. HISTORY OF PRESENT ILLNESS AND HOSPITAL COURSE: This patient is a 73-year-old -[place] female came in with chest pain, which is really referred abdominal pain up into her chest. Due to her risk factors, she was admitted for evaluation. She has negative cardiology evaluation and started tolerating diet and having decreased abdominal pain during hospital admission. The patient's medications were restarted. She did initially have high blood pressures and it was discovered she was not taking her home blood pressure medications. These were restarted in the hospital and the patient came back to near normotensive state. The patient did have mild abdominal pain, which will be followed by GI as an outpatient. DISCHARGE MEDICATIONS: She will be discharged on the following medications, amlodipine 10 mg daily, lisinopril 10 mg daily, aspirin 81 mg daily, dicyclomine 20 mg t.i.d. p.r.n., multivitamin daily, omeprazole 40 mg daily. DISCHARGE INSTRUCTIONS: The patient will follow up in [facility] for continued care and recheck of blood pressure. JALEESA MARTINS MD DR: LUC/elizabeth JOB#: [id number] / [id number]
--- NOTE | 2018-10-19 13:10 | NUR ---
Discharge Note: VIPIN HENRIQUEZ [address] [place] [address] Discharge instructions and discharge home medications reviewed with Patient and a copy given. All questions have been answered and understanding verbalized. The following instructions and handouts were given: f/u with PCP within one week. Explained medications to patient and discussed diet with a patient with diverticulosis- high fiber, cramping can occur but should subside, and use OTC pain medications for cramping because narcotics can cause increased constipation. Discontinued lines and drains: Peripheral IV intact. Patient discharged to Home or Self Care with Family Member via Wheelchair.
[2018-10-19] MEDS ORDERED: amLODIPine BESYLATE 5 MG TABLET PO SCH (21:00)
== END 2018-10-19 13:10 | disposition home or self-care (01) | DRG 392 ==
LOC: ER 07:48 → 6 SOUTH 10:20
PROVIDERS: ADMIT Family Medicine; ATTEND Family Medicine
DX: K58.9 Irritable bowel syndrome, unspecified (principal); I16.1 Hypertensive emergency; I11.0 Hypertensive heart disease with heart failure; I50.9 Heart failure, unspecified; E11.9 Type 2 diabetes mellitus without complications; Z96.653 Presence of artificial knee joint, bilateral; E78.5 Hyperlipidemia, unspecified; R07.89 Other chest pain; E78.00 Pure hypercholesterolemia, unspecified; K57.90 Diverticulosis of intestine, part unspecified, without perforation or abscess without bleeding; G62.9 Polyneuropathy, unspecified; M19.90 Unspecified osteoarthritis, unspecified site; I49.9 Cardiac arrhythmia, unspecified; J45.909 Unspecified asthma, uncomplicated; K21.9 Gastro-esophageal reflux disease without esophagitis; K22.70 Barrett's esophagus without dysplasia; Z82.49 Family history of ischemic heart disease and other diseases of the circulatory system; Z87.440 Personal history of urinary (tract) infections; Z85.01 Personal history of malignant neoplasm of esophagus; Z90.49 Acquired absence of other specified parts of digestive tract; Z79.899 Other long term (current) drug therapy
CPT/HCPCS: 36415; 71045; 74176; 80053; 80061; 81001; 82553; 83036; 83690; 83880; 84484; 85025; 85610; 90471; 90756; 93005; 93306; 96361; 96374; 96375; J3010; J3490; J7030; 99285-25; Q2035

== ENCOUNTER 2018-12-04 02:15 | Emergency (ER) | payer MEDICARE ==
[~2018-12-04] VITALS: Ht 157.5 cm; Wt 104.3 kg
[~2018-12-04 02:15] MED LIST changes: +AMLO10TA8 PO; +AMLO5TAB10 PO; +ASPI-612 PO; +DICY20TA3 PO; +LISI10TA2 PO
[2018-12-04 02:25] VITALS: BP 192/88
[2018-12-04] MEDS ORDERED: ORPH100T PO (03:10)
[2018-12-04] MEDS ORDERED: NAPR-695 PO (03:10)
--- NOTE | 2018-12-04 03:10 | PHYS DOC ---
Past Medical History Past Medical History: Arthritis, Asthma, Cancer, Diverticulitis, GERD, High Cholesterol, Hypertension, UTI Additional Past Medical Histor: esophagus CA Past Surgical History: Cholecystectomy, Knee Replacement, Tonsillectomy, Other Additional Past Surgical Histo: BILATERAL CARPAL TUNNEL Alcohol Use: None Drug Use: None Adult General Chief Complaint Chief Complaint: SHOUDLER HPI HPI Patient is a 73 year old [f__sex] who presents with [] Review of Systems Review of Systems Constitutional: Denies fever or chills [] Eyes: Denies change in visual acuity, redness, or eye pain [] HENT: Denies nasal congestion or sore throat [] Respiratory: Denies cough or shortness of breath [] Cardiovascular: No additional information not addressed in HPI [] GI: Denies abdominal pain, nausea, vomiting, bloody stools or diarrhea [] : Denies dysuria or hematuria [] Musculoskeletal: Denies back pain or joint pain [] Integument: Denies rash or skin lesions [] Neurologic: Denies headache, focal weakness or sensory changes [] Endocrine: Denies polyuria or polydipsia [] All other systems were reviewed and found to be within normal limits, except as documented in this note. Current Medications Current Medications Current Medications Medications (Trade) Dose Ordered Sig/Yvan Start Time Stop Time Status Last Admin Dose Admin Cyclobenzaprine HCl (Flexeril) 10 mg 1X ONCE 12/04/18 03:30 12/04/18 03:31 Ketorolac Tromethamine (Toradol 15mg Vial) 15 mg 1X ONCE 12/04/18 03:30 12/04/18 03:31 Allergies Allergies Allergies Coded Allergies Type Severity Reaction Last Updated Verified iodine Allergy Intermediate Rash 02/11/15 Yes acetaminophen Adverse Reaction Severe NAUSEA 02/11/15 Yes hydrocodone Adverse Reaction Severe NAUSEA 02/11/15 Yes morphine Adverse Reaction Severe NAUSEA 02/11/15 Yes Physical Exam Physical Exam Constitutional: Well developed, well nourished, no acute distress, non-toxic appearance. [] HENT: Normocephalic, atraumatic, bilateral external ears normal, oropharynx moist, no oral exudates, nose normal. [] Eyes: PERRLA, EOMI, conjunctiva normal, no discharge. [] Neck: Normal range of motion, no tenderness, supple, no stridor. [] Cardiovascular:Heart rate regular rhythm, no murmur [] Lungs & Thorax: Bilateral breath sounds clear to auscultation [] Abdomen: Bowel sounds normal, soft, no tenderness, no masses, no pulsatile ma sses. [] Skin: Warm, dry, no erythema, no rash. [] Back: No tenderness, no CVA tenderness. [] Extremities: No tenderness, no cyanosis, no clubbing, ROM intact, no edema. [] Neurologic: Alert and oriented X 3, normal motor function, normal sensory function, no focal deficits noted. [] Psychologic: Affect normal, judgement normal, mood normal. [] Current Patient Data Vital Signs Vital Signs Date Time Temp Pulse Resp B/P (MAP) Pulse Ox O2 Delivery O2 Flow Rate FiO2 12/04/18 02:25 98.5 92 20 192/88 (122) 98 Room Air 98.5 EKG EKG [] Radiology/Procedures Radiology/Procedures [] Course & Med Decision Making Course & Med Decision Making Pertinent Labs and Imaging studies reviewed. (See chart for details) [] Dragon Disclaimer Dragon Disclaimer This electronic medical record was generated, in whole or in part, using a voice recognition dictation system. Departure Departure Impression: Primary Impression: Shoulder pain, left Disposition: HOME, SELF-CARE Condition: STABLE Referrals: JALEESA MARTINS MD (PCP) FRANKLYN MARTINS MD Patient Instructions: Shoulder Pain, Xypb-[id number] Scripts Orphenadrine Citrate (ORPHENADRINE CITRATE) 100 Mg Tablet.er 1 TAB PO BID, #14 TAB Prov: JALEESA FRAZIER DO 12/04/18 Naproxen (NAPROXEN) 375 Mg Tablet 1 TAB PO BID, #30 TAB Prov: JALEESA FRAZIER DO 12/04/18 Problem Qualifiers Primary Impression: Shoulder pain, left Chronicity: acute Qualified Codes: M25.512 - Pain in left shoulder JALEESA FRAZIER DO Dec 04, 2018 03:10
[2018-12-04] MEDS ORDERED: KETOROLAC 15 MG/ML VIAL. IM ONE (03:30)
[2018-12-04] MEDS ORDERED: CYCLOBENZAPRINE 10 MG TABLET. PO ONE (03:30)
--- NOTE | 2018-12-04 08:38 | RAD ---
Left shoulder, 3 views, 12/04/2018: HISTORY: Shoulder pain No fracture or dislocation is identified. There are mild degenerative changes at the glenohumeral and acromioclavicular articulations. The periarticular soft tissues are unremarkable. IMPRESSION: 1. Mild degenerative change. 2. No acute bony abnormality is detected. Electronically signed by: Kulwinder Joe MD (12/04/2018 8:35 AM) [facility]
== END 2018-12-04 04:00 | disposition home or self-care (01) ==
LOC: ER 02:15
DX: M25.512 Pain in left shoulder (principal); K21.9 Gastro-esophageal reflux disease without esophagitis; E78.00 Pure hypercholesterolemia, unspecified; I10 Essential (primary) hypertension; J45.909 Unspecified asthma, uncomplicated; Z88.5 Allergy status to narcotic agent; Z88.6 Allergy status to analgesic agent; Z88.8 Allergy status to other drugs, medicaments and biological substances
CPT/HCPCS: 73030; 96372; 99284; J1885

== ENCOUNTER → 2019-03-22 | Outpatient (CLI) | payer MEDICARE ==
[~2019-03-22] MED LIST changes: +NAPR-695 PO; +ORPH100T PO
--- NOTE | 2019-03-22 16:52 | RAD ---
2 view study of both knees Clinical indications: Knee pain. Right knee: Total right knee arthroplasty is evident which is well aligned. No acute fracture or lytic process is seen. Left knee: Total left knee arthroplasty is evident which is well aligned. No acute fracture or lytic process is seen. The prosthesis is unchanged in appearance from previous study dated February 11, 2015. IMPRESSION: Bilateral total knee arthroplasties. No acute osseous abnormality. Electronically signed by: Jim Rosario MD (03/22/2019 4:49 PM) [place] [id number]
== END | disposition home or self-care (01) ==
LOC: RAD 12:54
PROVIDERS: ATTEND Orthopaedic Surgery
DX: M25.561 Pain in right knee (principal); M25.562 Pain in left knee; Z96.653 Presence of artificial knee joint, bilateral
CPT/HCPCS: 73565

== ENCOUNTER → 2019-03-23 | Outpatient (CLI) | payer MEDICARE | END | disposition home or self-care (01) | LOC: LAB 09:07 | PROVIDERS: ATTEND Orthopaedic Surgery | DX: M25.561 Pain in right knee (principal); M25.461 Effusion, right knee | CPT/HCPCS: 36415; 85651; 86140 ==

== ENCOUNTER 2019-08-09 11:57 | Emergency (ER) | payer MEDICARE ==
[~2019-08-09] VITALS: Ht 160 cm; Wt 105.2 kg
[~2019-08-09 11:57] MED LIST changes: +OMEP40CA45 PO; -OMEP40CA5 PO
[2019-08-09 12:14] VITALS: BP 182/94
--- NOTE | 2019-08-09 12:23 | PHYS DOC ---
Past Medical History Past Medical History: Arthritis, Asthma, Cancer, Diverticulitis, GERD, High Cholesterol, Hypertension, UTI Additional Past Medical Histor: esophagus CA Past Surgical History: Cholecystectomy, Knee Replacement, Tonsillectomy, Other Additional Past Surgical Histo: BILATERAL CARPAL TUNNEL Alcohol Use: None Drug Use: None Adult General Chief Complaint Chief Complaint: HIP PAIN HPI HPI Patient is a 74 year old female who presents with left back pain that she's down her left leg has been ongoing for week. Patient states she's recently been riding a stationary bike and might have overdone it. The patient rates her pain as 9 out of 10 in severity and sharp. She has a history of L4 and L5 bulging disc. Review of Systems Review of Systems Constitutional: Denies fever or chills [] Eyes: Denies change in visual acuity, redness, or eye pain [] HENT: Denies nasal congestion or sore throat [] Respiratory: Denies cough or shortness of breath [] Cardiovascular: No additional information not addressed in HPI [] GI: Denies abdominal pain, nausea, vomiting, bloody stools or diarrhea [] : Denies dysuria or hematuria [] Musculoskeletal: Reports back pain radiating down left leg. Integument: Denies rash or skin lesions [] Neurologic: Denies headache, focal weakness or sensory changes [] Endocrine: Denies polyuria or polydipsia [] Complete systems were reviewed and found to be within normal limits, except as documented in this note. Current Medications Current Medications Current Medications Medications (Trade) Dose Ordered Sig/Yvan Start Time Stop Time Status Last Admin Dose Admin Lidocaine HCl 20 ml 1X STAT 08/09/19 12:16 08/09/19 12:18 DC 08/09/19 12:24 20 ML Allergies Allergies Allergies Coded Allergies Type Severity Reaction Last Updated Verified iodine Allergy Intermediate Rash 02/11/15 Yes acetaminophen Adverse Reaction Severe NAUSEA 02/11/15 Yes hydrocodone Adverse Reaction Severe NAUSEA 02/11/15 Yes morphine Adverse Reaction Severe NAUSEA 02/11/15 Yes Physical Exam Physical Exam Constitutional: Well developed, well nourished, no acute distress, non-toxic appearance. [] HENT: Normocephalic, atraumatic, bilateral external ears normal, oropharynx moist, no oral exudates, nose normal. [] Eyes: PERRLA, EOMI, conjunctiva normal, no discharge. [] Skin: Warm, dry, no erythema, no rash. [] Back: L lower back tenderness with trigger point to L gluteal muscle Extremities: No tenderness, no cyanosis, no clubbing, ROM intact, no edema. [] Neurologic: Alert and oriented X 3, normal motor function, normal sensory function, no focal deficits noted. [] Psychologic: Affect normal, judgement normal, mood normal. [] Current Patient Data Vital Signs Vital Signs Date Time Temp Pulse Resp B/P (MAP) Pulse Ox O2 Delivery O2 Flow Rate FiO2 08/09/19 12:14 97.9 79 20 182/94 (123) 96 Room Air 97.9 EKG EKG [] Radiology/Procedures Radiology/Procedures [] Course & Med Decision Making Course & Med Decision Making Pertinent Labs and Imaging studies reviewed. (See chart for details) Will perform trigger point injection to L gluteal muscle. Peformed injection to 3 trigger points (0.5 mL of 2% lidocaine) in gluteal muscle on left side. Sciatic pain disappeared. Will d/c home. Discussed using heat, and foam roller to keep muscle loose. Dragon Disclaimer Dragon Disclaimer This electronic medical record was generated, in whole or in part, using a voice recognition dictation system. Departure Departure Impression: Primary Impression: Sciatic leg pain Disposition: HOME, SELF-CARE Condition: STABLE Referrals: JALEESA MARTINS MD (PCP) Patient Instructions: Sciatica Additional Instructions: Thank you for visiting [facility]. We appreciate you trusting us with your care. If any additional problems come up don't hesitate to return to visit us. Please follow up with your primary care provider so they can plan additional care if needed and know about the problem that you had. If symptoms worsen come back to the Emergency Department. Any concerning symptoms that start such as chest pain, shortness of air, weakness or numbness on one side of the body, running high fevers or any other concerning symptoms return to the ER. Can get foam roller to help loosen muscle and use heat. JALEESA HERNÁNDEZ APRN Aug 09, 2019 12:23
[2019-08-09] MEDS: LIDOCAINE 2% 20 ML VIAL. IJ STA (12:24)
== END 2019-08-09 13:06 | disposition home or self-care (01) ==
LOC: ER 11:57
DX: M54.42 Lumbago with sciatica, left side (principal); M79.10 Myalgia, unspecified site; M51.06 Intervertebral disc disorders with myelopathy, lumbar region; J45.909 Unspecified asthma, uncomplicated; K21.9 Gastro-esophageal reflux disease without esophagitis; E78.00 Pure hypercholesterolemia, unspecified; I10 Essential (primary) hypertension; Z90.49 Acquired absence of other specified parts of digestive tract; Z88.6 Allergy status to analgesic agent; Z88.5 Allergy status to narcotic agent; Z88.8 Allergy status to other drugs, medicaments and biological substances
CPT/HCPCS: 20552; 99284; J2001

== ENCOUNTER 2019-09-10 10:00 | Emergency (ER) | payer MEDICARE ==
[~2019-09-10] VITALS: Ht 160 cm; Wt 102.2 kg
[2019-09-10 10:13] VITALS: BP 201/83
[2019-09-10] MEDS ORDERED: fentaNYL PF VIAL 100 MCG/2 ML VIAL IM STA (10:56)
[2019-09-10] MEDS ORDERED: METH4TAB2 PO (11:00)
--- NOTE | 2019-09-10 11:01 | PHYS DOC ---
Past Medical History Past Medical History: Hypertension Additional Past Medical Histor: ESOPHAGEAL CA Past Surgical History: No Surgical History Additional Past Surgical Histo: BILATERAL CARPAL TUNNEL, BILATERAL CATARACTS Alcohol Use: None Drug Use: None Adult General Chief Complaint Chief Complaint: LOWER EXT PAIN HPI HPI Patient is a pleasant 74 year old female who presents with left lower back pain that radiates down the left leg. The patient has been struggling with this over the last 2 months. The patient has seen her primary care provider who placed her on prednisone and muscle relaxers. She states that the steroids helped but the muscle relaxers have not. She finished the steroids 1.5 weeks ago. Review of Systems Review of Systems Constitutional: Denies fever or chills [] Eyes: Denies change in visual acuity, redness, or eye pain [] HENT: Denies nasal congestion or sore throat [] Respiratory: Denies cough or shortness of breath [] Cardiovascular: No additional information not addressed in HPI [] GI: Denies abdominal pain, nausea, vomiting, bloody stools or diarrhea [] : Denies dysuria or hematuria [] Musculoskeletal: Reports left lower back pain going down left leg.] Integument: Denies rash or skin lesions [] Neurologic: Denies headache, focal weakness or sensory changes [] Endocrine: Denies polyuria or polydipsia [] Complete systems were reviewed and found to be within normal limits, except as documented in this note. Allergies Allergies Allergies Coded Allergies Type Severity Reaction Last Updated Verified iodine Allergy Intermediate Rash 02/11/15 Yes acetaminophen Adverse Reaction Severe NAUSEA 02/11/15 Yes hydrocodone Adverse Reaction Severe NAUSEA 02/11/15 Yes morphine Adverse Reaction Severe NAUSEA 02/11/15 Yes Physical Exam Physical Exam Constitutional: Well developed, well nourished, no acute distress, non-toxic appearance. [] HENT: Normocephalic, atraumatic, bilateral external ears normal, oropharynx moist, no oral exudates, nose normal. [] Eyes: PERRLA, EOMI, conjunctiva normal, no discharge. [] Back: Tenderness to left lower back. Extremities: No tenderness, no cyanosis, no clubbing, ROM intact, no edema. [] Neurologic: Alert and oriented X 3, normal motor function, normal sensory function, no focal deficits noted. [] Psychologic: Affect normal, judgement normal, mood normal. [] Current Patient Data Vital Signs Vital Signs Date Time Temp Pulse Resp B/P (MAP) Pulse Ox O2 Delivery O2 Flow Rate FiO2 09/10/19 10:13 97.4 80 20 201/83 (122) 97 Room Air 97.4 EKG EKG [] Radiology/Procedures Radiology/Procedures [] Course & Med Decision Making Course & Med Decision Making Pertinent Labs and Imaging studies reviewed. (See chart for details) Will give IM Fentanyl in ER and then will place on Medrol dose pack. Discussed with patient the need to follow up with Dr. Burton for additional outpatient workup. Dragon Disclaimer Dragon Disclaimer This electronic medical record was generated, in whole or in part, using a voice recognition dictation system. Departure Departure Impression: Primary Impression: Sciatic leg pain Disposition: HOME, SELF-CARE Condition: STABLE Referrals: JALEESA BURTON MD (PCP) Patient Instructions: Sciatica, Sciatica with Rehab[facility] Additional Instructions: Thank you for visiting [facility]. We appreciate you trusting us with your care. If any additional problems come up don't hesitate to return to visit us. Please follow up with your primary care provider so they can plan additional care if needed and know about the problem that you had. If symptoms worsen come back to the Emergency Department. Any concerning symptoms that start such as chest pain, shortness of air, weakness or numbness on one side of the body, running high fevers or any other concerning symptoms return to the ER. Scripts Methylprednisolone (MEDROL) 4 Mg Tab.ds.pk 1 PKG PO UD, #1 PKG Prov: JALEESA HERNÁNDEZ APRN 09/10/19 JALEESA HERNÁNDEZ APRN Sep 10, 2019 11:01
== END 2019-09-10 11:08 | disposition home or self-care (01) ==
LOC: ER 10:00
DX: M54.42 Lumbago with sciatica, left side (principal); I10 Essential (primary) hypertension; Z88.5 Allergy status to narcotic agent; Z88.6 Allergy status to analgesic agent; Z88.8 Allergy status to other drugs, medicaments and biological substances
CPT/HCPCS: 96372; 99283; J3010

== ENCOUNTER → 2019-10-12 | Outpatient (CLI) | payer MEDICARE ==
[~2019-10-12] MED LIST changes: +METH4TAB2 PO
--- NOTE | 2019-10-12 17:10 | RAD ---
Lumbar spine 3 views: Reason for examination: Left-sided low back pain and right-sided sciatica. The vertebral bodies of the lumbar spine are normally aligned anteriorly and posteriorly. No acute fracture or subluxation is seen. Posterior elements appear to be intact. There are however degenerative changes in the lumbar spine with hypertrophic spurs which are most prominent at the L4 and L5 levels. There appears be severe narrowing of the L4-5 intervertebral discs space. Remaining intervertebral discs are fairly well-maintained. No gross abnormality seen at the sacrum or sacroiliac joints. IMPRESSION: Degenerative spondylosis which is most prominent at the L4 and L5 levels with severe loss of disc height at the L4-5 level. Electronically signed by: Lorna Rose MD (10/12/2019 5:07 PM) [id number]
== END | disposition home or self-care (01) ==
LOC: RAD 09:36
PROVIDERS: ATTEND Family Medicine
DX: M47.816 Spondylosis without myelopathy or radiculopathy, lumbar region (principal); M89.38 Hypertrophy of bone, other site; M54.41 Lumbago with sciatica, right side
CPT/HCPCS: 72100

== ENCOUNTER 2019-11-10 12:16 | Emergency (ER) | payer MEDICARE ==
[~2019-11-10] VITALS: Ht 160 cm; Wt 105.0 kg
[2019-11-10 13:19] LABS: BASE EXCESS ABG 3 mmol/L (-3-3); HCO3 ABG 27 mmol/L (21-28); PCO2 ABG 41 mmHg (35-46); PO2 ABG 80 mmHg (65-108); SAT O2 ABG 96 % (92-99)
[2019-11-10 13:24] LABS: FIO2 ABG 21
--- NOTE | 2019-11-10 13:30 | RAD ---
CHEST AP ONLY Clinical Indication: Shortness of air Comparison: AP chest 10/17/2018. Findings: The cardiomediastinal silhouette is normal. Lungs are clear. There is no pneumothorax. No pleural effusion is appreciated. No acute bone abnormality. IMPRESSION: No acute cardiopulmonary process. Electronically signed by: Yinka Recio MD (11/10/2019 1:27 PM) [id number]
[2019-11-10 13:37] LABS: BASO % 1 % (0-3); EOS % 0 % (0-3); HEMATOCRIT 41.1 % (36.0-47.0); HEMOGLOBIN 13.7 g/dL (12.0-15.5); LYMPH # 2.6 x10^3/uL (1.0-4.8); LYMPH % 48 % (24-48); MEAN CORPUSCULAR HEMOGLOBIN 30 pg (25-35); MEAN CORPUSCULAR HGB CONC 33 g/dL (31-37); MEAN CORPUSCULAR VOLUME 89 fL (79-100); MONO # 0.5 x10^3/uL (0.0-1.1); MONO % 10 % (0-9); NEUT # 2.3 x10^3/uL (1.8-7.7); NEUT % 42 % (31-73); PLATELET COUNT 130 x10^3/uL (140-400); RED BLOOD COUNT 4.62 x10^6/uL (3.50-5.40); RED CELL DISTRIBUTION WIDTH 13.4 % (11.5-14.5); WHITE BLOOD COUNT 5.4 x10^3/uL (4.0-11.0)
[2019-11-10 13:41] LABS: CALCIUM 8.5 mg/dL (8.5-10.1); CREATININE 0.7 mg/dL (0.6-1.0); GFR 99.2; POTASSIUM 3.6 mmol/L (3.5-5.1)
[2019-11-10 13:46] LABS: ALBUMIN 3.4 g/dL (3.4-5.0); TOTAL BILIRUBIN 0.4 mg/dL (0.2-1.0); TOTAL PROTEIN 6.9 g/dL (6.4-8.2)
--- NOTE | 2019-11-10 14:01 | PHYS DOC ---
Past Medical History Past Medical History: Hypertension Additional Past Medical Histor: ESOPHAGEAL CA Past Surgical History: No Surgical History Additional Past Surgical Histo: BILATERAL CARPAL TUNNEL, BILATERAL CATARACTS Smoking Status: Never Smoker Alcohol Use: None Drug Use: None Adult General Chief Complaint Chief Complaint: SHORTNESS OF BREATH HPI HPI Patient is a 74 year old male presents with generalized malaise, body aches, sore throat, cough and chest pain. Symptom onset was several days ago. Patient with recent known exposure to multiple coronavirus patient[facility]. Patient had outpatient testing Tuesday was informed yesterday that she was positive for coronavirus. Denies fever, vomiting, abdominal pain, diarrhea. Denies dizziness lightheadedness. No other acute symptoms or complaints. Patient's been taking Tylenol and ibuprofen for her symptoms. Review of Systems Review of Systems ROS as per HPI All other systems were reviewed and found to be within normal limits, except as documented in this note. Allergies Allergies Allergies Coded Allergies Type Severity Reaction Last Updated Verified iodine Allergy Intermediate Rash 02/11/15 Yes acetaminophen Adverse Reaction Severe NAUSEA 02/11/15 Yes hydrocodone Adverse Reaction Severe NAUSEA 02/11/15 Yes morphine Adverse Reaction Severe NAUSEA 02/11/15 Yes Physical Exam Physical Exam Constitutional: Well developed, well nourished, no acute distress, non-toxic appearance. [] HENT: Normocephalic, atraumatic, bilateral external ears normal, oropharynx moist, nose normal. [] Eyes: PERRLA, EOMI, conjunctiva normal, no discharge. [] Neck: Normal range of motion, no tenderness, supple, no stridor. [] Cardiovascular:Heart rate regular rhythm, no murmur [] Lungs & Thorax: Bilateral breath sounds clear to auscultation [] Abdomen: Bowel sounds normal, soft, no tenderness. [] Skin: Warm, dry.. [] Back: No tenderness, no CVA tenderness. [] Extremities: No tenderness, no edema. [] Neurologic: Alert and oriented X 3, normal motor function, normal sensory function, no focal deficits noted. [] Psychologic: Affect normal, judgement normal, mood normal. [] Current Patient Data Vital Signs Vital Signs Date Time Temp Pulse Resp B/P (MAP) Pulse Ox O2 Delivery O2 Flow Rate FiO2 11/10/19 13:00 98.8 87 18 179/80 (113) 99 Room Air 98.8 Lab Values Laboratory Tests Test 11/10/19 12:24 11/10/19 13:10 O2 Saturation 96 % (92-99) Arterial Blood pH 7.44 (7.35-7.45) Arterial Blood pCO2 at Patient Temp 41 mmHg (35-46) Arterial Blood pO2 at Patient Temp 80 mmHg (65-108) Arterial Blood HCO3 27 mmol/L (21-28) Arterial Blood Base Excess 3 mmol/L (-3-3) FiO2 21 White Blood Count 5.4 x10^3/uL (4.0-11.0) Red Blood Count 4.62 x10^6/uL (3.50-5.40) Hemoglobin 13.7 g/dL (12.0-15.5) Hematocrit 41.1 % (36.0-47.0) Mean Corpuscular Volume 89 fL (79-100) Mean Corpuscular Hemoglobin 30 pg (25-35) Mean Corpuscular Hemoglobin Concent 33 g/dL (31-37) Red Cell Distribution Width 13.4 % (11.5-14.5) Platelet Count 130 x10^3/uL (140-400) L Neutrophils (%) (Auto) 42 % (31-73) Lymphocytes (%) (Auto) 48 % (24-48) Monocytes (%) (Auto) 10 % (0-9) H Eosinophils (%) (Auto) 0 % (0-3) Basophils (%) (Auto) 1 % (0-3) Neutrophils # (Auto) 2.3 x10^3/uL (1.8-7.7) Lymphocytes # (Auto) 2.6 x10^3/uL (1.0-4.8) Monocytes # (Auto) 0.5 x10^3/uL (0.0-1.1) Eosinophils # (Auto) 0.0 x10^3/uL (0.0-0.7) Basophils # (Auto) 0.0 x10^3/uL (0.0-0.2) Sodium Level 136 mmol/L (136-145) Potassium Level 3.6 mmol/L (3.5-5.1) Chloride Level 101 mmol/L (98-107) Carbon Dioxide Level 25 mmol/L (21-32) Anion Gap 10 (6-14) Blood Urea Nitrogen 8 mg/dL (7-20) Creatinine 0.7 mg/dL (0.6-1.0) Estimated GFR (Cockcroft-Gault) 99.2 BUN/Creatinine Ratio 11 (6-20) Glucose Level 114 mg/dL (70-99) H Calcium Level 8.5 mg/dL (8.5-10.1) Total Bilirubin 0.4 mg/dL (0.2-1.0) Aspartate Amino Transferase (AST) 43 U/L (15-37) H Alanine Aminotransferase (ALT) 52 U/L (14-59) Alkaline Phosphatase 91 U/L (46-116) Troponin I Quantitative < 0.017 ng/mL (0.000-0.055) IB-Rci-X-Type Natriuretic Peptide 83 pg/mL (0-124) Total Protein 6.9 g/dL (6.4-8.2) Albumin 3.4 g/dL (3.4-5.0) Albumin/Globulin Ratio 1.0 (1.0-1.7) Laboratory Tests 11/10/19 13:10 Laboratory Tests 11/10/19 13:10 EKG EKG [] Radiology/Procedures Radiology/Procedures CXR: NAD per radiology report] Course & Med Decision Making Course & Med Decision Making Pertinent Labs and Imaging studies reviewed. (See chart for details) [Fatigue, shortness of breath, malaise in a coronavirus positive patient. No acute findings on imaging or labs. Vital signs stable. Recommend discharge home, continue self according to with supportive care and PCP follow-up. Return precautions reviewed. Patient verbalizes understanding agreement discharge instructions prior to departure.] Dragon Disclaimer Dragon Disclaimer This electronic medical record was generated, in whole or in part, using a voice recognition dictation system. Departure Departure Impression: Primary Impression: Coronavirus infection Disposition: HOME, SELF-CARE Condition: STABLE Referrals: JALEESA MARTINS MD (PCP) Patient Instructions: Viral Syndrome Additional Instructions: Please increase fluids and continue ibuprofen and Tylenol for inflammation and pain. Continue to self quarantine the next 10 days. Contact your PCP for further concerns. Return to the ED if new or worsening symptoms. JUNIOR MYERS DO Nov 10, 2019 14:01
[2019-11-10 14:15] VITALS: BP 181/83
--- NOTE | 2019-11-10 20:00 | EKG ---
[facility] [address] [place] [address] Test Date: 2019-11-10 Test Time: 12:37:15 Pat Name: VIPIN SWEENEY Department: Room: Gender: F Assembly Lead Person: : 1945 Requested By: JUNIOR MYERS Order Number: [id number] Reading MD: Terence Sharp MD Measurements Intervals [place] Rate: 76 P: 31 MI: 144 QRS: -14 QRSD: 88 T: 15 QT: 410 QTc: 465 Interpretive Statements SINUS RHYTHM NON-SPECIFIC ST/T CHANGES Electronically Signed On 11-12-2019 10:41:01 CDT by Terence Sharp MD
== END 2019-11-10 14:30 | disposition home or self-care (01) ==
LOC: ER 12:16
DX: U07.1 COVID-19 (principal); R06.02 Shortness of breath; I10 Essential (primary) hypertension; Z88.5 Allergy status to narcotic agent; Z88.6 Allergy status to analgesic agent; Z88.8 Allergy status to other drugs, medicaments and biological substances
CPT/HCPCS: 36415; 71045; 80053; 82805; 83880; 84484; 85025; 93005; 99285-25

== ENCOUNTER 2019-11-12 11:04 | Inpatient (IN) | payer MEDICARE ==
[~2019-11-12] VITALS: Ht 165.1 cm; Wt 106.9 kg
[2019-11-12 11:55] LABS: BASO % 1 % (0-3); EOS % 0 % (0-3); HEMATOCRIT 41.8 % (36.0-47.0); HEMOGLOBIN 13.8 g/dL (12.0-15.5); LYMPH % 35 % (24-48); MEAN CORPUSCULAR HEMOGLOBIN 29 pg (25-35); MEAN CORPUSCULAR HGB CONC 33 g/dL (31-37); MEAN CORPUSCULAR VOLUME 89 fL (79-100); MONO # 0.5 x10^3/uL (0.0-1.1); MONO % 9 % (0-9); NEUT # 3.2 x10^3/uL (1.8-7.7); NEUT % 55 % (31-73); PLATELET COUNT 137 x10^3/uL (140-400); RED BLOOD COUNT 4.69 x10^6/uL (3.50-5.40); RED CELL DISTRIBUTION WIDTH 13.4 % (11.5-14.5); WHITE BLOOD COUNT 5.8 x10^3/uL (4.0-11.0)
--- NOTE | 2019-11-12 11:56 | RAD ---
PORTABLE CHEST 1V History: Shortness of breath. COMPARISON: November 10, 2019. FINDINGS: The cardiomediastinal silhouette is stable. No evidence of pneumothorax. No evidence of pleural effusion. Bones appear grossly intact. No focal infiltrate is identified. IMPRESSION: Stable exam, no evidence of consolidating infiltrate. Electronically signed by: David Hagan MD (11/12/2019 11:53 AM) [id number]
[2019-11-12 13:21] LABS: CREATININE 0.7 mg/dL (0.6-1.0); GFR 99.2; POTASSIUM 3.6 mmol/L (3.5-5.1)
[2019-11-12 13:29] LABS: ALBUMIN 3.4 g/dL (3.4-5.0); ALBUMIN/GLOBULIN RATIO 0.8 (1.0-1.7); TOTAL BILIRUBIN 0.5 mg/dL (0.2-1.0); TOTAL PROTEIN 7.6 g/dL (6.4-8.2)
--- NOTE | 2019-11-12 13:34 | EKG ---
[facility] [address] [place] [address] Test Date: 2019-11-12 Test Time: 11:31:17 Pat Name: VIPIN SWEENEY Department: Room: Gender: F Solutions Development Analyst: : 1945 Requested By: CONCHA GIVENS Order Number: [id number] Reading MD: Terence Sharp MD Measurements Intervals [place] Rate: 82 P: 38 GA: 138 QRS: -10 QRSD: 88 T: 22 QT: 386 QTc: 454 Interpretive Statements SINUS RHYTHM NON-SPECIFIC ST/T CHANGES Electronically Signed On 11-13-2019 9:36:54 CDT by Terence Sharp MD
[2019-11-12] MEDS ORDERED: hydrALAZINE 20 MG/ML VIAL. IVP ONE (14:30)
[2019-11-12 15:10] LABS: BILIRUBIN,URINE NEGATIVE (NEG); CLARITY,URINE CLEAR; COLOR,URINE YELLOW; NITRITE,URINE NEGATIVE (NEG); PROTEIN,URINE NEGATIVE (NEG-TRACE); UROBILINOGEN,URINE 0.2 mg/dL (0.2 mg/dL)
[2019-11-12 15:29] LABS: BACTERIA,URINE FEW /HPF (0-FEW); RBC,URINE 0 /HPF (0-2); SQUAMOUS EPITHELIAL CELL,UR OCC /LPF
--- NOTE | 2019-11-12 15:36 | PDOC1 ---
History and Physical Date of Admission Date of Admission DATE: 11/12/19 TIME: 15:36 Identification/Chief Complaint Chief Complaint seen in er with fever , feeling worse than yesterday 74 year old female who presents to ER today for fever, cough, chills, having trouble breathing, body ache. // was diagnosed with COVID- 19 by her doctor outpatient last week. Patient was evaluated here on Thursday 11/09 due to shortness of air and cough. was discharged home, recommended to quarantine herself at home. came back TO er today inc fever Past Medical History Past Medical History Past Medical History Cardiovascular: CHF, HTN, Hyperlipidemia Pulmonary: No pertinent hx CENTRAL NERVOUS SYSTEM: Periperal neuropathy, Other (no pertinent hx) GI: Constipation, Diverticulosis, GERD, Other (Barretts esophagus ) Heme/Onc: No pertinent hx Hepatobiliary: No pertinent hx Psych: No pertinent hx Rheumatologic: No pertinent hx Infectious disease: No pertinent hx ENT: No pertinent hx Renal/: No pertinent hx Endocrine: No pertinent hx Dermatology: No pertinent hx Past Surgical History Past Surgical History: Cholecystectomy, Total knee replacement (bilateral ), Tonsillectomy Family History Family History: Coronary Artery Disease, Heart Disease, Hypertension Social History Smoke: No ALCOHOL: none Drugs: None Cardiovascular: CHF, HTN, Hyperlipidemia Pulmonary: No pertinent hx CENTRAL NERVOUS SYSTEM: Periperal neuropathy, Other GI: Constipation, Diverticulosis, GERD, Other Heme/Onc: No pertinent hx Hepatobiliary: No pertinent hx Psych: No pertinent hx Musculoskeletal: Osteoarthritis Rheumatologic: No pertinent hx Infectious disease: No pertinent hx Renal/: No pertinent hx Endocrine: No pertinent hx Past Surgical History Past Surgical History: Cholecystectomy, Total knee replacement, Tonsillectomy Family History Family History: Coronary Artery Disease, Heart Disease, Hypertension Social History Smoke: No ALCOHOL: none Drugs: None Current Medications Current Medications Current Medications Hydralazine HCl (Apresoline Inj) 10 mg 1X ONCE IVP Last administered on 11/12/19at 14:36; Start 11/12/19 at 14:30; Stop 11/12/19 at 14:31; Status DC Active Scripts Active Medrol (Methylprednisolone) 4 Mg Tab.ds.pk 1 Pkg PO UD Orphenadrine Citrate 100 Mg Tablet.er 1 Tab PO BID Naproxen 375 Mg Tablet 1 Tab PO BID Lisinopril 10 Mg Tablet 10 Mg PO DAILY 30 Days Amlodipine Besylate 10 Mg Tablet 10 Mg PO DAILY 30 Days Reported Aspirin Ec (Aspirin) 81 Mg Tablet.dr 1 Tab PO DAILY Omeprazole 40 Mg Capsule.dr 1 Cap PO DAILY Dicyclomine Hcl 20 Mg Tablet 1 Tab PO PRN TID PRN Women's Daily Multivitamin (Multivit With Calcium,Iron,Min) 1 Each Tablet 1 Each PO DAILY Allergies Allergies: Coded Allergies: iodine (Verified Allergy, Intermediate, Rash, 02/11/15) acetaminophen (Verified Adverse Reaction, Severe, NAUSEA, 02/11/15) hydrocodone (Verified Adverse Reaction, Severe, NAUSEA, 02/11/15) morphine (Verified Adverse Reaction, Severe, NAUSEA, 02/11/15) ROS Review of System Review of Systems Review of Systems Constitutional: POSITIVE FOR fever or chills [] Eyes: Denies change in visual acuity, redness, or eye pain [] HENT: Denies nasal congestion or sore throat [] Respiratory: Positive for cough and shortness of breath [] Cardiovascular: No additional information not addressed in HPI [] GI: Denies abdominal pain, nausea, vomiting, bloody stools or diarrhea [] : Denies dysuria or hematuria [] Musculoskeletal: Denies back pain or joint pain [] Integument: Denies rash or skin lesions [] Neurologic: Denies headache, focal weakness or sensory changes [] Endocrine: Denies polyuria or polydipsia [] 14 pt systems were reviewed and found to be within normal limits, except as documented Respiratory: YES: Cough, Shortness of breath Musculoskeletal: Yes Joint Stiffness Physical Exam Physical Exam Physical Exam Physical Exam Constitutional: Well developed, well nourished, mild acute distress, non-toxic appearance. [] HENT: Normocephalic, atraumatic, bilateral external ears normal, oropharynx moist, no oral exudates, nose normal. [] Eyes: PERRLA, EOMI, conjunctiva normal, no discharge. [] Neck: Normal range of motion, no tenderness, supple, no stridor. [] Cardiovascular:Heart rate regular rhythm, no murmur [] Lungs & Thorax: Bilateral breath sounds clear to auscultation [] Abdomen: Bowel sounds normal, soft, no tenderness, no masses, no pulsatile masses. [] Skin: Warm, dry, no erythema, no rash. [] Back: No tenderness, no CVA tenderness. [] Extremities: No tenderness, no cyanosis, no clubbing, ROM intact, no edema. [] Neurologic: Alert and oriented X 3, normal motor function, normal sensory function, no focal deficits noted. [] Psychologic: Affect normal, judgement normal, mood normal. [] Breasts: Not examined Abdomen: Normal bowel sounds Rectal Exam: not examined Extremities: No cyanosis Neuro: Cranial nerves 3-12 NL Vitals Vitals Vital Signs Date Time Temp Pulse Resp B/P (MAP) Pulse Ox O2 Delivery O2 Flow Rate FiO2 11/12/19 14:41 84 18 176/75 (108) 97 Room Air 11/12/19 11:48 100.3 100.3 Labs Labs Laboratory Tests Test 11/12/19 11:45 11/12/19 13:00 11/12/19 14:53 White Blood Count 5.8 x10^3/uL (4.0-11.0) Red Blood Count 4.69 x10^6/uL (3.50-5.40) Hemoglobin 13.8 g/dL (12.0-15.5) Hematocrit 41.8 % (36.0-47.0) Mean Corpuscular Volume 89 fL (79-100) Mean Corpuscular Hemoglobin 29 pg (25-35) Mean Corpuscular Hemoglobin Concent 33 g/dL (31-37) Red Cell Distribution Width 13.4 % (11.5-14.5) Platelet Count 137 x10^3/uL (140-400) Neutrophils (%) (Auto) 55 % (31-73) Lymphocytes (%) (Auto) 35 % (24-48) Monocytes (%) (Auto) 9 % (0-9) Eosinophils (%) (Auto) 0 % (0-3) Basophils (%) (Auto) 1 % (0-3) Neutrophils # (Auto) 3.2 x10^3/uL (1.8-7.7) Lymphocytes # (Auto) 2.0 x10^3/uL (1.0-4.8) Monocytes # (Auto) 0.5 x10^3/uL (0.0-1.1) Eosinophils # (Auto) 0.0 x10^3/uL (0.0-0.7) Basophils # (Auto) 0.0 x10^3/uL (0.0-0.2) Sodium Level 136 mmol/L (136-145) Potassium Level 3.6 mmol/L (3.5-5.1) Chloride Level 99 mmol/L (98-107) Carbon Dioxide Level 29 mmol/L (21-32) Anion Gap 8 (6-14) Blood Urea Nitrogen 7 mg/dL (7-20) Creatinine 0.7 mg/dL (0.6-1.0) Estimated GFR (Cockcroft-Gault) 99.2 BUN/Creatinine Ratio 10 (6-20) Glucose Level 108 mg/dL (70-99) Lactic Acid Level 1.7 mmol/L (0.4-2.0) Calcium Level 9.0 mg/dL (8.5-10.1) Total Bilirubin 0.5 mg/dL (0.2-1.0) Aspartate Amino Transf (AST/SGOT) 37 U/L (15-37) Alanine Aminotransferase (ALT/SGPT) 43 U/L (14-59) Alkaline Phosphatase 95 U/L (46-116) Troponin I Quantitative < 0.017 ng/mL (0.000-0.055) NQ-Unq-D-Type Natriuretic Peptide 121 pg/mL (0-124) Total Protein 7.6 g/dL (6.4-8.2) Albumin 3.4 g/dL (3.4-5.0) Albumin/Globulin Ratio 0.8 (1.0-1.7) Lipase 79 U/L (73-393) Urine Collection Type Void Urine Color Yellow Urine Clarity Clear Urine pH 7.0 (<5.0-8.0) Urine Specific [place] 1.010 (1.000-1.030) Urine Protein Negative mg/dL (NEG-TRACE) Urine Glucose (UA) Negative mg/dL (NEG) Urine Ketones (Stick) 15 mg/dL (NEG) Urine Blood Negative (NEG) Urine Nitrite Negative (NEG) Urine Bilirubin Negative (NEG) Urine Urobilinogen Dipstick 0.2 mg/dL (0.2 mg/dL) Urine Leukocyte Esterase Negative (NEG) Urine RBC 0 /HPF (0-2) Urine WBC 1-4 /HPF (0-4) Urine Squamous Epithelial Cells Occ /LPF Urine Bacteria Few /HPF (0-FEW) Laboratory Tests Test 4/6/20 11:45 11/12/19 13:00 11/12/19 14:53 White Blood Count 5.8 x10^3/uL (4.0-11.0) Red Blood Count 4.69 x10^6/uL (3.50-5.40) Hemoglobin 13.8 g/dL (12.0-15.5) Hematocrit 41.8 % (36.0-47.0) Mean Corpuscular Volume 89 fL (79-100) Mean Corpuscular Hemoglobin 29 pg (25-35) Mean Corpuscular Hemoglobin Concent 33 g/dL (31-37) Red Cell Distribution Width 13.4 % (11.5-14.5) Platelet Count 137 x10^3/uL (140-400) Neutrophils (%) (Auto) 55 % (31-73) Lymphocytes (%) (Auto) 35 % (24-48) Monocytes (%) (Auto) 9 % (0-9) Eosinophils (%) (Auto) 0 % (0-3) Basophils (%) (Auto) 1 % (0-3) Neutrophils # (Auto) 3.2 x10^3/uL (1.8-7.7) Lymphocytes # (Auto) 2.0 x10^3/uL (1.0-4.8) Monocytes # (Auto) 0.5 x10^3/uL (0.0-1.1) Eosinophils # (Auto) 0.0 x10^3/uL (0.0-0.7) Basophils # (Auto) 0.0 x10^3/uL (0.0-0.2) Sodium Level 136 mmol/L (136-145) Potassium Level 3.6 mmol/L (3.5-5.1) Chloride Level 99 mmol/L (98-107) Carbon Dioxide Level 29 mmol/L (21-32) Anion Gap 8 (6-14) Blood Urea Nitrogen 7 mg/dL (7-20) Creatinine 0.7 mg/dL (0.6-1.0) Estimated GFR (Cockcroft-Gault) 99.2 BUN/Creatinine Ratio 10 (6-20) Glucose Level 108 mg/dL (70-99) Lactic Acid Level 1.7 mmol/L (0.4-2.0) Calcium Level 9.0 mg/dL (8.5-10.1) Total Bilirubin 0.5 mg/dL (0.2-1.0) Aspartate Amino Transf (AST/SGOT) 37 U/L (15-37) Alanine Aminotransferase (ALT/SGPT) 43 U/L (14-59) Alkaline Phosphatase 95 U/L (46-116) Troponin I Quantitative < 0.017 ng/mL (0.000-0.055) XA-Vjp-Y-Type Natriuretic Peptide 121 pg/mL (0-124) Total Protein 7.6 g/dL (6.4-8.2) Albumin 3.4 g/dL (3.4-5.0) Albumin/Globulin Ratio 0.8 (1.0-1.7) Lipase 79 U/L (73-393) Urine Collection Type Void Urine Color Yellow Urine Clarity Clear Urine pH 7.0 (<5.0-8.0) Urine Specific [place] 1.010 (1.000-1.030) Urine Protein Negative mg/dL (NEG-TRACE) Urine Glucose (UA) Negative mg/dL (NEG) Urine Ketones (Stick) 15 mg/dL (NEG) Urine Blood Negative (NEG) Urine Nitrite Negative (NEG) Urine Bilirubin Negative (NEG) Urine Urobilinogen Dipstick 0.2 mg/dL (0.2 mg/dL) Urine Leukocyte Esterase Negative (NEG) Urine RBC 0 /HPF (0-2) Urine WBC 1-4 /HPF (0-4) Urine Squamous Epithelial Cells Occ /LPF Urine Bacteria Few /HPF (0-FEW) Images Images PORTABLE CHEST 1V History: Shortness of breath. COMPARISON: November 10, 2019. FINDINGS: The cardiomediastinal silhouette is stable. No evidence of pneumothorax. No evidence of pleural effusion. Bones appear grossly intact. No focal infiltrate is identified. IMPRESSION: Stable exam, no evidence of consolidating infiltrate. Electronically signed by: Jaleesa Hagan MD (11/12/2019 11:53 AM) [id number] DICTATED and SIGNED BY: JALEESA HAGAN MD DATE: 11/12/19 1153 VTE Prophylaxis Ordered VTE Prophylaxis Devices: No VTE Pharmacological Prophylaxi: No Assessment/Plan Assessment/Plan impression 1. pos covid 19 pneumonitis 2. fever, cough 3. hypertensive urgency 4. hx chf 5. GERD 6. HYPERLIPIDEMIA plan admit emperic iv zithromax, ZOSYN o2 support prn resp isolation pulm consult dvt prophylaxis BLOOD CULTURE guarded prognosis due to age > 70 covid-19 pos COVID-19 CRITERIA: The patient was evaluated during the global COVID-19 pandemic, and that diagnosis was suspected/considered upon their initial presentation. Their evaluation, treatment and testing was consistent with current guidelines for patients who present with complaints or symptoms that may be related to COVID-19. 34 min cc time COVID-19 CRITERIA: The patient was evaluated during the global COVID-19 pandemic, and that diagnosis was suspected/considered upon their initial presentation. Their evaluation, treatment and testing was consistent with current guidelines for patients who present with complaints or symptoms that may be related to COVID-19. CATALINO AGEE MD Nov 12, 2019 15:36
--- NOTE | 2019-11-12 15:51 | PHYS DOC ---
Past Medical History Past Medical History: A-Fib, Hypertension Additional Past Medical Histor: ESOPHAGEAL CA Past Surgical History: No Surgical History, Cholecystectomy, Tonsillectomy Additional Past Surgical Histo: BILATERAL CARPAL TUNNEL, BILATERAL CATARACTS Smoking Status: Never Smoker Alcohol Use: None Drug Use: None Adult General Chief Complaint Chief Complaint: SHORTNESS OF BREATH HPI HPI Patient is a 74 year old female who presents to ER today for fever, cough, chills, having trouble breathing, have body ache. Patient was diagnosed with CO VID- 19 by her doctor outpatient last week. Patient was evaluated here on Tuesday due to shortness of air and cough. Chest x-ray and lab work did not show any acute problem. Patient was discharged home, recommended to quarantine herself at home. Patient came back here today because she did not feel any better. Review of Systems Review of Systems Constitutional: POSITIVE FOR fever or chills [] Eyes: Denies change in visual acuity, redness, or eye pain [] HENT: Denies nasal congestion or sore throat [] Respiratory: Positive for cough and shortness of breath [] Cardiovascular: No additional information not addressed in HPI [] GI: Denies abdominal pain, nausea, vomiting, bloody stools or diarrhea [] : Denies dysuria or hematuria [] Musculoskeletal: Denies back pain or joint pain [] Integument: Denies rash or skin lesions [] Neurologic: Denies headache, focal weakness or sensory changes [] Endocrine: Denies polyuria or polydipsia [] All other systems were reviewed and found to be within normal limits, except as documented in this note. Current Medications Current Medications Current Medications Medications (Trade) Dose Ordered Sig/Yvan Start Time Stop Time Status Last Admin Dose Admin Hydralazine HCl (Apresoline Inj) 10 mg 1X ONCE 11/12/19 14:30 11/12/19 14:31 DC 11/12/19 14:36 10 MG Allergies Allergies Allergies Coded Allergies Type Severity Reaction Last Updated Verified iodine Allergy Intermediate Rash 02/11/15 Yes acetaminophen Adverse Reaction Severe NAUSEA 02/11/15 Yes hydrocodone Adverse Reaction Severe NAUSEA 02/11/15 Yes morphine Adverse Reaction Severe NAUSEA 02/11/15 Yes Physical Exam Physical Exam Constitutional: Well developed, well nourished, mild acute distress, non-toxic appearance. [] HENT: Normocephalic, atraumatic, bilateral external ears normal, oropharynx moist, no oral exudates, nose normal. [] Eyes: PERRLA, EOMI, conjunctiva normal, no discharge. [] Neck: Normal range of motion, no tenderness, supple, no stridor. [] Cardiovascular:Heart rate regular rhythm, no murmur [] Lungs & Thorax: Bilateral breath sounds clear to auscultation [] Abdomen: Bowel sounds normal, soft, no tenderness, no masses, no pulsatile masses. [] Skin: Warm, dry, no erythema, no rash. [] Back: No tenderness, no CVA tenderness. [] Extremities: No tenderness, no cyanosis, no clubbing, ROM intact, no edema. [] Neurologic: Alert and oriented X 3, normal motor function, normal sensory f unction, no focal deficits noted. [] Psychologic: Affect normal, judgement normal, mood normal. [] Current Patient Data Vital Signs Vital Signs Date Time Temp Pulse Resp B/P (MAP) Pulse Ox O2 Delivery O2 Flow Rate FiO2 11/12/19 15:30 84 18 177/72 (107) 99 Room Air 11/12/19 11:48 100.3 100.3 Lab Values Laboratory Tests Test 11/12/19 11:45 11/12/19 13:00 11/12/19 14:53 White Blood Count 5.8 x10^3/uL (4.0-11.0) Red Blood Count 4.69 x10^6/uL (3.50-5.40) Hemoglobin 13.8 g/dL (12.0-15.5) Hematocrit 41.8 % (36.0-47.0) Mean Corpuscular Volume 89 fL (79-100) Mean Corpuscular Hemoglobin 29 pg (25-35) Mean Corpuscular Hemoglobin Concent 33 g/dL (31-37) Red Cell Distribution Width 13.4 % (11.5-14.5) Platelet Count 137 x10^3/uL (140-400) L Neutrophils (%) (Auto) 55 % (31-73) Lymphocytes (%) (Auto) 35 % (24-48) Monocytes (%) (Auto) 9 % (0-9) Eosinophils (%) (Auto) 0 % (0-3) Basophils (%) (Auto) 1 % (0-3) Neutrophils # (Auto) 3.2 x10^3/uL (1.8-7.7) Lymphocytes # (Auto) 2.0 x10^3/uL (1.0-4.8) Monocytes # (Auto) 0.5 x10^3/uL (0.0-1.1) Eosinophils # (Auto) 0.0 x10^3/uL (0.0-0.7) Basophils # (Auto) 0.0 x10^3/uL (0.0-0.2) Sodium Level 136 mmol/L (136-145) Potassium Level 3.6 mmol/L (3.5-5.1) Chloride Level 99 mmol/L (98-107) Carbon Dioxide Level 29 mmol/L (21-32) Anion Gap 8 (6-14) Blood Urea Nitrogen 7 mg/dL (7-20) Creatinine 0.7 mg/dL (0.6-1.0) Estimated GFR (Cockcroft-Gault) 99.2 BUN/Creatinine Ratio 10 (6-20) Glucose Level 108 mg/dL (70-99) H Lactic Acid Level 1.7 mmol/L (0.4-2.0) Calcium Level 9.0 mg/dL (8.5-10.1) Total Bilirubin 0.5 mg/dL (0.2-1.0) Aspartate Amino Transferase (AST) 37 U/L (15-37) Alanine Aminotransferase (ALT) 43 U/L (14-59) Alkaline Phosphatase 95 U/L (46-116) Troponin I Quantitative < 0.017 ng/mL (0.000-0.055) YT-Sbr-L-Type Natriuretic Peptide 121 pg/mL (0-124) Total Protein 7.6 g/dL (6.4-8.2) Albumin 3.4 g/dL (3.4-5.0) Albumin/Globulin Ratio 0.8 (1.0-1.7) L Lipase 79 U/L (73-393) Urine Collection Type Void Urine Color Yellow Urine Clarity Clear Urine pH 7.0 (<5.0-8.0) Urine Specific [place] 1.010 (1.000-1.030) Urine Protein Negative mg/dL (NEG-TRACE) Urine Glucose (UA) Negative mg/dL (NEG) Urine Ketones (Stick) 15 mg/dL (NEG) Urine Blood Negative (NEG) Urine Nitrite Negative (NEG) Urine Bilirubin Negative (NEG) Urine Urobilinogen Dipstick 0.2 mg/dL (0.2 mg/dL) Urine Leukocyte Esterase Negative (NEG) Urine RBC 0 /HPF (0-2) Urine WBC 1-4 /HPF (0-4) Urine Squamous Epithelial Cells Occ /LPF Urine Bacteria Few /HPF (0-FEW) Laboratory Tests 11/12/19 11:45 Laboratory Tests 11/12/19 13:00 EKG EKG [] Radiology/Procedures Radiology/Procedures [][facility] [address] [place] [address] IMAGING REPORT Signed PATIENT: VIPIN SWEENEY ACCOUNT: [id number] : 1945 LOCATION: ER AGE: 74 SEX: F EXAM STATUS: REG ER ORD. PHYSICIAN: CONCHA GIVENS DO REASON: soa PROCEDURE: PORTABLE CHEST 1V PORTABLE CHEST 1V History: Shortness of breath. COMPARISON: November 10, 2019. FINDINGS: The cardiomediastinal silhouette is stable. No evidence of pneumothorax. No evidence of pleural effusion. Bones appear grossly intact. No focal infiltrate is identified. IMPRESSION: Stable exam, no evidence of consolidating infiltrate. Electronically signed by: David Hagan MD (11/12/2019 11:53 AM) [id number] DICTATED and SIGNED BY: DAVID HAGAN MD DATE: 11/12/19 1153 Course & Med Decision Making Course & Med Decision Making Pertinent Labs and Imaging studies reviewed. (See chart for details) [COVID-19 CRITERIA: The patient was evaluated during the global COVID-19 pandemic, and that diagnosis was suspected/considered upon their initial presentation. Their evaluation, treatment and testing was consistent with current guidelines for patients who present with complaints or symptoms that may be related to COVID-19. Dragon Disclaimer Dragon Disclaimer This electronic medical record was generated, in whole or in part, using a voice recognition dictation system. Departure Departure Impression: Primary Impression: COVID-19 virus infection Additional Impressions: Acute bronchitis due to COVID-19 virus Hypertensive urgency Disposition: ADMITTED INPATIENT Admitting Physician: MICHELE (DR. AGEE) Condition: STABLE Referrals: DAVID MARTINS MD (PCP) Problem Qualifiers CONCHA GIVENS DO Nov 12, 2019 15:51
[2019-11-12] MEDS ORDERED: ONDANSETRON PF 4 MG/2 ML VIAL. IV PRN ×2 (16:00→19:30)
[2019-11-12] MEDS ORDERED: hydrALAZINE 20 MG/ML VIAL. IVP PRN (17:00)
[2019-11-12] MEDS ORDERED: DICYCLOMINE HCL 10 MG CAPSULE PO PRN (17:30)
[2019-11-12 18:55] VITALS: BP 155/67
[2019-11-12] MEDS ORDERED: DOCUSATE SODIUM 100 MG CAPSULE. PO PRN (19:30)
[2019-11-12] MEDS ORDERED: 0.9 % SODIUM CHLORIDE 10 ML DISP.SYRIN. IV PRN (19:30)
[2019-11-12] MEDS ORDERED: cloNIDine HCL 0.1 MG TABLET PO PRN (19:30)
[2019-11-12] MEDS ORDERED: guaiFENesin ORAL 200 MG/10 ML LIQUID. PO PRN (19:30)
[2019-11-12] MEDS ORDERED: ACETAMINOPHEN 325 MG TABLET. PO PRN (19:30)
[2019-11-12] MEDS ORDERED: ALBUTEROL SULFATE 2.5 MG/3 ML NEBU. NEB PRN (19:30)
[2019-11-12] MEDS ORDERED: MAG HYDROX/ALUMINUM HYD/SIMETH 30 ML ORAL.SUSP PO PRN (19:30)
[2019-11-12] MEDS ORDERED: AZITHRMYCN 500MG IVPB FOR OMNI 250 ML IV ONE (19:30)
--- NOTE | 2019-11-12 19:30 | NUR ---
Received report from day nurse that patient arrived on 6S per cart from ER at 1800. Admitting diagnosis is increased shortness of air,elevated blood pressure Bronchitis and patient tested positive for Covid 19 at [facility] on11/03. Patient is alert and oriented x4. Patient lives at home with her . Patient is allergic to acetaminophen,hydrocodone,iodine and morphine. Patient is on room air at this time.O2 sat 98%-100& Telemetry is ST with PVC's. Patient is in mild distress. Will continue to monitor.
[2019-11-12] MEDS: LISINOPRIL 10 MG TABLET PO SCH (21:13)
[2019-11-12] MEDS: CYCLOBENZAPRINE 10 MG TABLET. PO SCH (21:13)
[2019-11-12] MEDS: amLODIPine BESYLATE 10 MG TABLET PO SCH (21:13)
[2019-11-12] MEDS: ENOXAPARIN 40 MG/0.4 ML SYRINGE. SQ SCH (21:14)
[2019-11-12] MEDS: PIPERACILLIN/TAZOBACTAM 3.375 GM in IV NORMAL SALINE 50ML 50 ML IV SCH (22:36)
[2019-11-12 23:30] VITALS: BP 130/63
[2019-11-13 03:10] VITALS: BP 125/60
[2019-11-13] MEDS: PIPERACILLIN/TAZOBACTAM 3.375 GM in IV NORMAL SALINE 50ML 50 ML IV SCH ×3 (05:49→17:25)
[2019-11-13 07:00] VITALS: BP 123/58
[2019-11-13] MEDS: ASPIRIN ENTERIC COATED 81 MG TABLET.DR. PO SCH (07:51)
[2019-11-13] MEDS: MULTIVITAMIN with MINERAL TABLET. PO SCH (07:51)
[2019-11-13] MEDS: CYCLOBENZAPRINE 10 MG TABLET. PO SCH ×3 (07:51→20:30)
[2019-11-13] MEDS: PANTOPRAZOLE 40 MG TABLET.DR. PO SCH (07:51)
[2019-11-13] MEDS: LISINOPRIL 10 MG TABLET PO SCH (07:52)
[2019-11-13] MEDS: amLODIPine BESYLATE 10 MG TABLET PO SCH (07:53)
--- NOTE | 2019-11-13 10:35 | NUR ---
SW following. Discussed with RN, pt from home with . COVID-19 positive test at . Pt on room air. RN anticipates possible discharge home today. SW will continue to follow.
[2019-11-13 11:00] VITALS: BP 120/56
--- NOTE | 2019-11-13 12:13 | PDOC ---
[facility] PROGRESS NOTE Chief Complaint Chief Complaint 1. pos covid 19 pneumonitis 2. fever, cough 3. hypertensive urgency 4. hx chf 5. GERD 6. HYPERLIPIDEMIA History of Present Illness History of Present Illness [id number] Patient seen and examined on the Covid-19 unit She is very ill Chart reviewed Discussed with ANNIE Jaeger testing still pending Vitals/I&O Vitals/I&O: Vital Signs Date Time Temp Pulse Resp B/P (MAP) Pulse Ox O2 Delivery O2 Flow Rate FiO2 11/13/19 11:00 99.6 84 19 120/56 (77) 95 Room Air 99.6 I & O 11/12/19 11/12/19 11/13/19 14:59 22:59 06:59 Intake Total 300 ml 220 ml Output Total 200 ml Balance 300 ml 20 ml Physical Exam General: Cooperative, mild distress Heart: No murmurs Lungs: Wheezing, Crackles Abdomen: Normal bowel sounds, No tenderness Extremities: No cyanosis Skin: No breakdown Labs Labs: Laboratory Tests Test 11/12/19 13:00 11/12/19 14:53 11/13/19 07:46 Sodium Level 136 mmol/L (136-145) Potassium Level 3.6 mmol/L (3.5-5.1) Chloride Level 99 mmol/L (98-107) Carbon Dioxide Level 29 mmol/L (21-32) Anion Gap 8 (6-14) Blood Urea Nitrogen 7 mg/dL (7-20) Creatinine 0.7 mg/dL (0.6-1.0) Estimated GFR (Cockcroft-Gault) 99.2 BUN/Creatinine Ratio 10 (6-20) Glucose Level 108 mg/dL (70-99) Lactic Acid Level 1.7 mmol/L (0.4-2.0) Calcium Level 9.0 mg/dL (8.5-10.1) Total Bilirubin 0.5 mg/dL (0.2-1.0) Aspartate Amino Transf (AST/SGOT) 37 U/L (15-37) Alanine Aminotransferase (ALT/SGPT) 43 U/L (14-59) Alkaline Phosphatase 95 U/L (46-116) Troponin I Quantitative < 0.017 ng/mL (0.000-0.055) SF-Tgt-S-Type Natriuretic Peptide 121 pg/mL (0-124) Total Protein 7.6 g/dL (6.4-8.2) Albumin 3.4 g/dL (3.4-5.0) Albumin/Globulin Ratio 0.8 (1.0-1.7) Lipase 79 U/L (73-393) Urine Collection Type Void Urine Color Yellow Urine Clarity Clear Urine pH 7.0 (<5.0-8.0) Urine Specific [place] 1.010 (1.000-1.030) Urine Protein Negative mg/dL (NEG-TRACE) Urine Glucose (UA) Negative mg/dL (NEG) Urine Ketones (Stick) 15 mg/dL (NEG) Urine Blood Negative (NEG) Urine Nitrite Negative (NEG) Urine Bilirubin Negative (NEG) Urine Urobilinogen Dipstick 0.2 mg/dL (0.2 mg/dL) Urine Leukocyte Esterase Negative (NEG) Urine RBC 0 /HPF (0-2) Urine WBC 1-4 /HPF (0-4) Urine Squamous Epithelial Cells Occ /LPF Urine Bacteria Few /HPF (0-FEW) Glucose (Fingerstick) 102 mg/dL (70-99) Assessment and Plan Assessmemt and Plan Problems Medical Problems: (1) Acute bronchitis due to COVID-19 virus Status: Acute (2) COVID-19 virus infection Status: Acute (3) Hypertensive urgency Status: Acute 1. pos covid 19 pneumonitis 2. fever, cough 3. hypertensive urgency 4. hx chf 5. GERD 6. HYPERLIPIDEMIA plan Plan emperic iv zithromax, ZOSYN o2 support prn resp isolation pulm consult dvt prophylaxis BLOOD CULTURE guarded prognosis due to age > 70 covid-19 pos COVID-19 CRITERIA: The patient was evaluated during the global COVID-19 pandemic, and that diagnosis was suspected/considered upon their initial present ation. Their evaluation, treatment and testing was consistent with current guidelines for patients who present with complaints or symptoms that may be related to COVID-19. Total time 33-minute Comment Review of Relevant I have reviewed the following items inge (where applicable) has been applied. Medications: Current Medications Medications (Trade) Dose Ordered Sig/Yvan Route PRN Reason Start Time Stop Time Status Last Admin Dose Admin Hydralazine HCl (Apresoline Inj) 10 mg 1X ONCE IVP 11/12/19 14:30 11/12/19 14:31 DC 11/12/19 14:36 Amlodipine Besylate (Norvasc) 10 mg DAILY PO 11/12/19 18:00 11/13/19 07:53 Aspirin (Ecotrin) 81 mg DAILY PO 11/13/19 09:00 11/13/19 07:51 Lisinopril (Prinivil) 10 mg DAILY PO 11/12/19 18:00 11/13/19 07:52 Multivitamins (Thera M Plus) 1 tab DAILY PO 11/13/19 09:00 11/13/19 07:51 Pantoprazole Sodium (Protonix) 40 mg DAILYAC PO 11/13/19 07:30 11/13/19 07:51 Cyclobenzaprine HCl (Flexeril) 10 mg TID PO 11/12/19 21:00 11/13/19 07:51 Azithromycin 250 ml @ 250 mls/hr 1X ONCE IV 11/12/19 19:30 11/12/19 20:29 DC 11/12/19 21:14 Guaifenesin (Robitussin) 200 mg PRN Q4HRS PRN PO COUGH 11/12/19 19:30 11/13/19 11:25 Enoxaparin Sodium (Lovenox 40mg Syringe) 40 mg Q24H SQ 11/12/19 20:00 11/12/19 21:14 Piperacillin Sod/ Tazobactam Sod 3.375 gm/Sodium Chloride 50 ml @ 100 mls/hr Q6HRS IV 11/12/19 20:00 11/13/19 11:18 CASTTERESA BRAUNL K III DO Nov 13, 2019 12:13
--- NOTE | 2019-11-13 14:37 | PDOC ---
PULMONARY PROGRESS NOTES Vitals Vital Signs Date Time Temp Pulse Resp B/P (MAP) Pulse Ox O2 Delivery O2 Flow Rate FiO2 11/13/19 11:00 99.6 84 19 120/56 (77) 95 Room Air 99.6 Lungs: Wheezing, Crackles Labs Laboratory Tests Test 11/12/19 11:45 11/12/19 13:00 11/12/19 14:53 11/13/19 07:46 White Blood Count 5.8 x10^3/uL (4.0-11.0) Red Blood Count 4.69 x10^6/uL (3.50-5.40) Hemoglobin 13.8 g/dL (12.0-15.5) Hematocrit 41.8 % (36.0-47.0) Mean Corpuscular Volume 89 fL (79-100) Mean Corpuscular Hemoglobin 29 pg (25-35) Mean Corpuscular Hemoglobin Concent 33 g/dL (31-37) Red Cell Distribution Width 13.4 % (11.5-14.5) Platelet Count 137 x10^3/uL (140-400) Neutrophils (%) (Auto) 55 % (31-73) Lymphocytes (%) (Auto) 35 % (24-48) Monocytes (%) (Auto) 9 % (0-9) Eosinophils (%) (Auto) 0 % (0-3) Basophils (%) (Auto) 1 % (0-3) Neutrophils # (Auto) 3.2 x10^3/uL (1.8-7.7) Lymphocytes # (Auto) 2.0 x10^3/uL (1.0-4.8) Monocytes # (Auto) 0.5 x10^3/uL (0.0-1.1) Eosinophils # (Auto) 0.0 x10^3/uL (0.0-0.7) Basophils # (Auto) 0.0 x10^3/uL (0.0-0.2) Sodium Level 136 mmol/L (136-145) Potassium Level 3.6 mmol/L (3.5-5.1) Chloride Level 99 mmol/L (98-107) Carbon Dioxide Level 29 mmol/L (21-32) Anion Gap 8 (6-14) Blood Urea Nitrogen 7 mg/dL (7-20) Creatinine 0.7 mg/dL (0.6-1.0) Estimated GFR (Cockcroft-Gault) 99.2 BUN/Creatinine Ratio 10 (6-20) Glucose Level 108 mg/dL (70-99) Lactic Acid Level 1.7 mmol/L (0.4-2.0) Calcium Level 9.0 mg/dL (8.5-10.1) Total Bilirubin 0.5 mg/dL (0.2-1.0) Aspartate Amino Transf (AST/SGOT) 37 U/L (15-37) Alanine Aminotransferase (ALT/SGPT) 43 U/L (14-59) Alkaline Phosphatase 95 U/L (46-116) Troponin I Quantitative < 0.017 ng/mL (0.000-0.055) HR-Gwm-U-Type Natriuretic Peptide 121 pg/mL (0-124) Total Protein 7.6 g/dL (6.4-8.2) Albumin 3.4 g/dL (3.4-5.0) Albumin/Globulin Ratio 0.8 (1.0-1.7) Lipase 79 U/L (73-393) Urine Collection Type Void Urine Color Yellow Urine Clarity Clear Urine pH 7.0 (<5.0-8.0) Urine Specific [place] 1.010 (1.000-1.030) Urine Protein Negative mg/dL (NEG-TRACE) Urine Glucose (UA) Negative mg/dL (NEG) Urine Ketones (Stick) 15 mg/dL (NEG) Urine Blood Negative (NEG) Urine Nitrite Negative (NEG) Urine Bilirubin Negative (NEG) Urine Urobilinogen Dipstick 0.2 mg/dL (0.2 mg/dL) Urine Leukocyte Esterase Negative (NEG) Urine RBC 0 /HPF (0-2) Urine WBC 1-4 /HPF (0-4) Urine Squamous Epithelial Cells Occ /LPF Urine Bacteria Few /HPF (0-FEW) Glucose (Fingerstick) 102 mg/dL (70-99) Laboratory Tests Test 11/12/19 14:53 11/13/19 07:46 Urine Collection Type Void Urine Color Yellow Urine Clarity Clear Urine pH 7.0 (<5.0-8.0) Urine Specific [place] 1.010 (1.000-1.030) Urine Protein Negative mg/dL (NEG-TRACE) Urine Glucose (UA) Negative mg/dL (NEG) Urine Ketones (Stick) 15 mg/dL (NEG) Urine Blood Negative (NEG) Urine Nitrite Negative (NEG) Urine Bilirubin Negative (NEG) Urine Urobilinogen Dipstick 0.2 mg/dL (0.2 mg/dL) Urine Leukocyte Esterase Negative (NEG) Urine RBC 0 /HPF (0-2) Urine WBC 1-4 /HPF (0-4) Urine Squamous Epithelial Cells Occ /LPF Urine Bacteria Few /HPF (0-FEW) Glucose (Fingerstick) 102 mg/dL (70-99) Medications Active Scripts Medications Dose Route/Sig Max Daily Dose Days Date Category Medrol (Methylprednisolone) 4 Mg Tab.ds.pk 1 Pkg PO UD 09/10/19 Rx Orphenadrine Citrate 100 Mg Tablet.er 1 Tab PO BID 12/04/18 Rx Naproxen 375 Mg Tablet 1 Tab PO BID 12/04/18 Rx Lisinopril 10 Mg Tablet 10 Mg PO DAILY 30 10/19/18 Rx Amlodipine Besylate 10 Mg Tablet 10 Mg PO DAILY 30 10/19/18 Rx Aspirin Ec (Aspirin) 81 Mg Tablet.dr 1 Tab PO DAILY 10/17/18 Reported Omeprazole 40 Mg Capsule.dr 1 Cap PO DAILY 10/17/18 Reported Dicyclomine Hcl 20 Mg Tablet 1 Tab PO PRN TID PRN 10/17/18 Reported Women's Daily Multivitamin (Multivit With Calcium,Iron,Min) 1 Each Tablet 1 Each PO DAILY 08/30/13 Reported Impression . FULL NOTE DICTATED AGREE WITH CURRENT RX THANKS TAVARES BAH MD Nov 13, 2019 14:37
[2019-11-13 14:53] VITALS: BP 114/59
--- NOTE | 2019-11-13 16:39 | CONS ---
DATE OF CONSULTATION: 11/13/2019 ATTENDING PHYSICIAN: Dr. Francois. REASON FOR CONSULTATION: The patient seen in pulmonary consultation at the request of Dr. Francois for SARS-COVID 2 positivity and increasing shortness of breath. HISTORY OF PRESENT ILLNESS: The patient is a 74-year-old that tested positive on 11/04/2019 SARS-COVID 2. She presented with increasing shortness of breath, cough and fever. She also has some chest tightness. Cough is mostly nonproductive. She had a chest x-ray. I reviewed the x-ray, there are no consolidations. A CT of the chest was now performed to look for ground glass opacities. The patient apparently was exposed to COVID patient in [place]. She denies any nausea, vomiting, diarrhea. PAST MEDICAL HISTORY: Chronic AFib, hypertension, esophageal cancer. PAST SURGICAL HISTORY: Status post bilateral carpal tunnel, cataract extraction. She also had an EGD for possible esophageal cancer. She was told that she may have the beginning of cancer, was due to follow up. REVIEW OF SYSTEMS: As indicated above, otherwise, a 10-point system was reviewed and negative. ALLERGIES: ACETAMINOPHEN, HYDROCODONE, IODINE AND MORPHINE. SOCIAL HISTORY: She has never smoked. ALLERGIES: No known drug allergies. CURRENT MEDICATION: List was reviewed. She is currently on Zithromax, Zosyn. PHYSICAL EXAMINATION: GENERAL: The patient was in no respiratory distress. VITAL SIGNS: Stable. T-max was 101.4. She is currently on room air. HEENT: Eyes, the sclerae were nonicteric. NECK: Jugular venous distention was not elevated. No lymphadenopathy. CHEST: Full expansion. LUNGS: Adequate flow with no wheezes. CARDIOVASCULAR: Regular rate and rhythm with S1, S2, no S3. ABDOMEN: Soft, nontender, nondistended. EXTREMITIES: No clubbing, cyanosis or edema. NEUROLOGIC: The patient was awake, alert, following commands. A detailed neuro exam was not performed. LABORATORY DATA: White count was normal. Hemoglobin and hematocrit were noted. Electrolytes were normal. Troponin was not elevated. IMPRESSION: 1. Progressive dyspnea secondary to COVID-19. 2. COVID-19 viral pneumonia. 3. Hypertensive urgency. 4. Fever. 5. History of chronic heart failure. 6. Gastroesophageal reflux. PLAN: 1. I agree with continued current empiric antibiotics. 2. Oxygen support. 3. Isolate. 4. Follow clinical course. 5. Metered dose inhalers. I do appreciate the privilege in sharing in the patient's care. TAVARES BAH MD DR: REBECA/elizabeth JOB#: [id number] / [id number]
[2019-11-13 19:20] VITALS: BP 123/57
[2019-11-13] MEDS: LACTOBACILLUS RHAMNOSUS GG 1 CAPSULE. PO SCH (20:30)
[2019-11-13] MEDS: ENOXAPARIN 40 MG/0.4 ML SYRINGE. SQ SCH (20:31)
[2019-11-13 23:30] VITALS: BP 120/60
[2019-11-14] MEDS: PIPERACILLIN/TAZOBACTAM 3.375 GM in IV NORMAL SALINE 50ML 50 ML IV SCH ×4 (00:05→17:21)
[2019-11-14 03:12] VITALS: BP 129/61
[2019-11-14 07:30] VITALS: BP 137/64
--- NOTE | 2019-11-14 07:31 | NUR ---
IP: Pt adm with known COVID requiring airborne/contact precautions using a face shield.
[2019-11-14] MEDS: PANTOPRAZOLE 40 MG TABLET.DR. PO SCH (07:45)
[2019-11-14] MEDS: LISINOPRIL 10 MG TABLET PO SCH (09:22)
[2019-11-14] MEDS: ASPIRIN ENTERIC COATED 81 MG TABLET.DR. PO SCH (09:22)
[2019-11-14] MEDS: MULTIVITAMIN with MINERAL TABLET. PO SCH (09:23)
[2019-11-14] MEDS: LACTOBACILLUS RHAMNOSUS GG 1 CAPSULE. PO SCH ×2 (09:23→20:54)
[2019-11-14] MEDS: amLODIPine BESYLATE 10 MG TABLET PO SCH (09:23)
[2019-11-14] MEDS: CYCLOBENZAPRINE 10 MG TABLET. PO SCH ×3 (09:23→20:54)
[2019-11-14 11:07] VITALS: BP 132/62
--- NOTE | 2019-11-14 11:08 | PDOC ---
PULMONARY PROGRESS NOTES Subjective Patient still short of air Vitals Vital Signs Date Time Temp Pulse Resp B/P (MAP) Pulse Ox O2 Delivery O2 Flow Rate FiO2 11/14/19 11:07 98.8 78 18 132/62 (85) 98 Room Air 98.8 ROS: No Nausea, No Chest Pain, No Abdominal Pain, No Increase Cough Lungs: Crackles Cardiovascular: S1, S2 Neuro Exam: Alert Extremities: No Edema Skin: Warm Labs Laboratory Tests Test 11/12/19 11:45 11/12/19 13:00 11/12/19 14:53 11/13/19 07:46 White Blood Count 5.8 x10^3/uL (4.0-11.0) Red Blood Count 4.69 x10^6/uL (3.50-5.40) Hemoglobin 13.8 g/dL (12.0-15.5) Hematocrit 41.8 % (36.0-47.0) Mean Corpuscular Volume 89 fL (79-100) Mean Corpuscular Hemoglobin 29 pg (25-35) Mean Corpuscular Hemoglobin Concent 33 g/dL (31-37) Red Cell Distribution Width 13.4 % (11.5-14.5) Platelet Count 137 x10^3/uL (140-400) Neutrophils (%) (Auto) 55 % (31-73) Lymphocytes (%) (Auto) 35 % (24-48) Monocytes (%) (Auto) 9 % (0-9) Eosinophils (%) (Auto) 0 % (0-3) Basophils (%) (Auto) 1 % (0-3) Neutrophils # (Auto) 3.2 x10^3/uL (1.8-7.7) Lymphocytes # (Auto) 2.0 x10^3/uL (1.0-4.8) Monocytes # (Auto) 0.5 x10^3/uL (0.0-1.1) Eosinophils # (Auto) 0.0 x10^3/uL (0.0-0.7) Basophils # (Auto) 0.0 x10^3/uL (0.0-0.2) Sodium Level 136 mmol/L (136-145) Potassium Level 3.6 mmol/L (3.5-5.1) Chloride Level 99 mmol/L (98-107) Carbon Dioxide Level 29 mmol/L (21-32) Anion Gap 8 (6-14) Blood Urea Nitrogen 7 mg/dL (7-20) Creatinine 0.7 mg/dL (0.6-1.0) Estimated GFR (Cockcroft-Gault) 99.2 BUN/Creatinine Ratio 10 (6-20) Glucose Level 108 mg/dL (70-99) Lactic Acid Level 1.7 mmol/L (0.4-2.0) Calcium Level 9.0 mg/dL (8.5-10.1) Total Bilirubin 0.5 mg/dL (0.2-1.0) Aspartate Amino Transf (AST/SGOT) 37 U/L (15-37) Alanine Aminotransferase (ALT/SGPT) 43 U/L (14-59) Alkaline Phosphatase 95 U/L (46-116) Troponin I Quantitative < 0.017 ng/mL (0.000-0.055) PQ-Bgp-E-Type Natriuretic Peptide 121 pg/mL (0-124) Total Protein 7.6 g/dL (6.4-8.2) Albumin 3.4 g/dL (3.4-5.0) Albumin/Globulin Ratio 0.8 (1.0-1.7) Lipase 79 U/L (73-393) Urine Collection Type Void Urine Color Yellow Urine Clarity Clear Urine pH 7.0 (<5.0-8.0) Urine Specific [place] 1.010 (1.000-1.030) Urine Protein Negative mg/dL (NEG-TRACE) Urine Glucose (UA) Negative mg/dL (NEG) Urine Ketones (Stick) 15 mg/dL (NEG) Urine Blood Negative (NEG) Urine Nitrite Negative (NEG) Urine Bilirubin Negative (NEG) Urine Urobilinogen Dipstick 0.2 mg/dL (0.2 mg/dL) Urine Leukocyte Esterase Negative (NEG) Urine RBC 0 /HPF (0-2) Urine WBC 1-4 /HPF (0-4) Urine Squamous Epithelial Cells Occ /LPF Urine Bacteria Few /HPF (0-FEW) Glucose (Fingerstick) 102 mg/dL (70-99) Medications Active Scripts Medications Dose Route/Sig Max Daily Dose Days Date Category Medrol (Methylprednisolone) 4 Mg Tab.ds.pk 1 Pkg PO UD 09/10/19 Rx Orphenadrine Citrate 100 Mg Tablet.er 1 Tab PO BID 12/04/18 Rx Naproxen 375 Mg Tablet 1 Tab PO BID 12/04/18 Rx Lisinopril 10 Mg Tablet 10 Mg PO DAILY 30 10/19/18 Rx Amlodipine Besylate 10 Mg Tablet 10 Mg PO DAILY 30 10/19/18 Rx Aspirin Ec (Aspirin) 81 Mg Tablet.dr Alexandro Tab PO DAILY 10/17/18 Reported Omeprazole 40 Mg Capsule. 1 Cap PO DAILY 10/17/18 Reported Dicyclomine Hcl 20 Mg Tablet 1 Tab PO PRN TID PRN 10/17/18 Reported Women's Daily Multivitamin (Multivit With Calcium,Iron,Min) 1 Each Tablet 1 Each PO DAILY 08/30/13 Reported Impression . IMPRESSION: 1. Progressive dyspnea secondary to COVID-19. 2. COVID-19 viral pneumonia. 3. Hypertensive urgency. 4. Fever. 5. History of chronic heart failure. 6. Gastroesophageal reflux. Plan . We will continue current support 1. I agree with continued current empiric antibiotics. 2. Oxygen support. 3. Isolate. 4. Follow clinical course. 5. Metered dose inhalers. TAVARES BAH MD Nov 14, 2019 11:08
--- NOTE | 2019-11-14 11:20 | PDOC ---
[facility] PROGRESS NOTE Chief Complaint Chief Complaint Covid 19 pneumonitis Fever, cough Hypertensive urgency Chf GERD HYPERLIPIDEMIA History of Present Illness History of Present Illness 11-14-2019 Patient seen and examined in respiratory isolation on the Covid-19 unit She is still quite ill Discussed with RN Chart reviewed Code testing is positive [id number] Patient seen and examined on the Covid-19 unit She is very ill Chart reviewed Discussed with RN Covid testing still pending Vitals/I&O Vitals/I&O: Vital Signs Date Time Temp Pulse Resp B/P (MAP) Pulse Ox O2 Delivery O2 Flow Rate FiO2 11/14/19 11:07 98.8 78 18 132/62 (85) 98 Room Air 98.8 I & O 11/13/19 11/13/19 11/14/19 15:00 23:00 07:00 Intake Total 600 ml 300 ml 600 ml Balance 600 ml 300 ml 600 ml Physical Exam General: Cooperative, mild distress Heart: No murmurs Lungs: Wheezing, Crackles Abdomen: Normal bowel sounds, No tenderness Extremities: No cyanosis Skin: No breakdown Assessment and Plan Assessmemt and Plan Problems Medical Problems: (1) Acute bronchitis due to COVID-19 virus Status: Acute (2) COVID-19 virus infection Status: Acute (3) Hypertensive urgency Status: Acute Covid 19 pneumonitis Respiratory failure Multiple comorbidities Debility Fever, cough Hypertensive urgency Chf GERD HYPERLIPIDEMIA Plan emperic iv zithromax, ZOSYN o2 support prn resp isolation pulm consult dvt prophylaxis BLOOD CULTURE guarded prognosis due to age > 70 covid-19 pos COVID-19 CRITERIA: The patient was evaluated during the global COVID-19 pandemic, and that diagnosis was suspected/considered upon their initial presentation. Their evaluation, treatment and testing was consistent with current guidelines for patients who present with complaints or symptoms that may be related to COVID-19. Total time 33-minute Comment Review of Relevant I have reviewed the following items inge (where applicable) has been applied. Medications: Current Medications Medications (Trade) Dose Ordered Sig/Yvan Route PRN Reason Start Time Stop Time Status Last Admin Dose Admin Lactobacillus Rhamnosus (Culturelle) 1 cap BID PO 11/13/19 21:00 11/14/19 09:23 HEMA ROSADO III DO Nov 14, 2019 11:20
[2019-11-14 15:09] VITALS: BP 129/62
--- NOTE | 2019-11-14 16:49 | NUR ---
SS following for discharge planning. SS reviewed pt chart and discussed with RN. Pt is from home and is currently on room air. Pt is COVID19 test Positive. SS will continue to follow for discharge planning.
[2019-11-14 19:00] VITALS: BP 129/58
[2019-11-14] MEDS: ENOXAPARIN 40 MG/0.4 ML SYRINGE. SQ SCH (20:54)
[2019-11-14 23:00] VITALS: BP 128/60
[2019-11-15] MEDS: PIPERACILLIN/TAZOBACTAM 3.375 GM in IV NORMAL SALINE 50ML 50 ML IV SCH ×3 (00:03→12:35)
[2019-11-15] MEDS: IBUPROFEN 200 MG TABLET. PO PRN ×2 (01:10→08:31)
[2019-11-15 03:00] VITALS: BP 118/58
[2019-11-15 07:45] VITALS: BP 135/60
[2019-11-15] MEDS: ASPIRIN ENTERIC COATED 81 MG TABLET.DR. PO SCH (08:28)
[2019-11-15] MEDS: CYCLOBENZAPRINE 10 MG TABLET. PO SCH ×3 (08:28→20:44)
[2019-11-15] MEDS: LACTOBACILLUS RHAMNOSUS GG 1 CAPSULE. PO SCH ×2 (08:29→20:44)
[2019-11-15] MEDS: PANTOPRAZOLE 40 MG TABLET.DR. PO SCH (08:29)
[2019-11-15] MEDS: MULTIVITAMIN with MINERAL TABLET. PO SCH (08:29)
[2019-11-15] MEDS: LISINOPRIL 10 MG TABLET PO SCH (08:30)
[2019-11-15] MEDS: amLODIPine BESYLATE 10 MG TABLET PO SCH (09:00)
--- NOTE | 2019-11-15 09:55 | PDOC ---
PULMONARY PROGRESS NOTES Subjective Patient feels weak, at times complains of chest tightness Vitals Vital Signs Date Time Temp Pulse Resp B/P (MAP) Pulse Ox O2 Delivery O2 Flow Rate FiO2 11/15/19 08:30 70 135/60 11/15/19 07:45 97.2 20 96 Room Air 97.2 ROS: No Nausea, No Abdominal Pain, No Increase Cough Lungs: Crackles Cardiovascular: S1, S2 Neuro Exam: Alert Extremities: No Edema Skin: Warm Medications Active Scripts Medications Dose Route/Sig Max Daily Dose Days Date Category Medrol (Methylprednisolone) 4 Mg Tab.ds.pk 1 Pkg PO UD 09/10/19 Rx Orphenadrine Citrate 100 Mg Tablet.er 1 Tab PO BID 12/04/18 Rx Naproxen 375 Mg Tablet 1 Tab PO BID 12/04/18 Rx Lisinopril 10 Mg Tablet 10 Mg PO DAILY 30 10/19/18 Rx Amlodipine Besylate 10 Mg Tablet 10 Mg PO DAILY 30 10/19/18 Rx Aspirin Ec (Aspirin) 81 Mg Tablet.dr 1 Tab PO DAILY 10/17/18 Reported Omeprazole 40 Mg Capsule.dr 1 Cap PO DAILY 10/17/18 Reported Dicyclomine Hcl 20 Mg Tablet 1 Tab PO PRN TID PRN 10/17/18 Reported Women's Daily Multivitamin (Multivit With Calcium,Iron,Min) 1 Each Tablet 1 Each PO DAILY 08/30/13 Reported Impression . IMPRESSION: 1. Progressive dyspnea secondary to COVID-19. 2. COVID-19 viral pneumonia. 3. Hypertensive urgency. 4. Fever. 5. History of chronic heart failure. 6. Gastroesophageal reflux. Causing chest tightness Plan . Patient improving, discharged home in the a.m., will perform a 6-minute walk. Discontinue antibiotics TAVARES BAH MD Nov 15, 2019 09:55
--- NOTE | 2019-11-15 09:58 | NUR ---
SW following. Discussed with RN, pt from home with , room air. COVID-19 positive. RN anticipates pt may discharge home today. SW will continue to follow.
[2019-11-15 11:09] VITALS: BP 131/60
--- NOTE | 2019-11-15 11:24 | PDOC ---
[facility] PROGRESS NOTE Chief Complaint Chief Complaint Covid 19 pneumonitis Fever, cough Hypertensive urgency Chf GERD HYPERLIPIDEMIA History of Present Illness History of Present Illness 11-15-2019 Patient seen on the Covid-19 unit in respiratory isolation Chart reviewed Discussed with RN Covid 19 testing came back positive 11-14-2019 Patient seen and examined in respiratory isolation on the Covid-19 unit She is still quite ill Discussed with RN Chart reviewed Code testing is positive [id number] Patient seen and examined on the Covid-19 unit She is very ill Chart reviewed Discussed with RN Covid testing still pending Vitals/I&O Vitals/I&O: Vital Signs Date Time Temp Pulse Resp B/P (MAP) Pulse Ox O2 Delivery O2 Flow Rate FiO2 11/15/19 08:30 70 135/60 11/15/19 08:00 Room Air 11/15/19 07:45 97.2 20 96 97.2 I & O 11/14/19 11/14/19 11/15/19 15:00 23:00 07:00 Intake Total 520 ml 240 ml Balance 520 ml 240 ml Physical Exam General: Cooperative, mild distress Heart: No murmurs Lungs: Crackles Abdomen: Normal bowel sounds, No tenderness Extremities: No cyanosis Skin: No breakdown Assessment and Plan Assessmemt and Plan Problems Medical Problems: (1) Acute bronchitis due to COVID-19 virus Status: Acute (2) COVID-19 virus infection Status: Acute (3) Hypertensive urgency Status: Acute Covid 19 pneumonitis fever, cough hypertensive urgency hx chf GERD HYPERLIPIDEMIA Plan IV zithromax, ZOSYN o2 support prn resp isolation pulm consult dvt prophylaxis BLOOD CULTURE Total time 31-minute Comment Review of Relevant I have reviewed the following items inge (where applicable) has been applied. Medications: Current Medications Medications (Trade) Dose Ordered Sig/Yvan Route PRN Reason Start Time Stop Time Status Last Admin Dose Admin Ibuprofen (Motrin) 600 mg PRN Q6HRS PRN PO INFLAMMATION 11/15/19 01:00 11/15/19 08:31 HEMA ROSADO III DO Nov 15, 2019 11:24
[2019-11-15 15:15] VITALS: BP 137/62
[2019-11-15 19:05] VITALS: BP 144/74
[2019-11-15] MEDS: ENOXAPARIN 40 MG/0.4 ML SYRINGE. SQ SCH (20:45)
[2019-11-15 23:25] VITALS: BP 143/65
[2019-11-16 03:25] VITALS: BP 144/69
[2019-11-16 07:00] VITALS: BP 152/82
[2019-11-16] MEDS: PANTOPRAZOLE 40 MG TABLET.DR. PO SCH (08:25)
[2019-11-16] MEDS: ASPIRIN ENTERIC COATED 81 MG TABLET.DR. PO SCH (08:26)
[2019-11-16] MEDS: LISINOPRIL 10 MG TABLET PO SCH (08:26)
[2019-11-16] MEDS: MULTIVITAMIN with MINERAL TABLET. PO SCH (08:26)
[2019-11-16] MEDS: CYCLOBENZAPRINE 10 MG TABLET. PO SCH ×2 (08:26→14:24)
[2019-11-16] MEDS: LACTOBACILLUS RHAMNOSUS GG 1 CAPSULE. PO SCH (08:26)
[2019-11-16] MEDS: amLODIPine BESYLATE 10 MG TABLET PO SCH (08:27)
[2019-11-16] MEDS: IBUPROFEN 200 MG TABLET. PO PRN (08:27)
--- NOTE | 2019-11-16 10:17 | NUR ---
SW following. Discussed with RN, pt not requiring any oxygen. RN anticipates likely discharge home today with self care. SW will continue to follow.
--- NOTE | 2019-11-16 10:27 | NUR ---
Unable to print tele strip, pt SR, HR 89.
[2019-11-16 11:00] VITALS: BP 142/77
--- NOTE | 2019-11-16 12:28 | DS ---
DATE OF DISCHARGE: 11/16/2019 ADMISSION DIAGNOSIS: COVID-19 with pneumonia. DISCHARGE DIAGNOSES: Resolving COVID-19. HOSPITAL COURSE: The patient is a pleasant elderly female presented with COVID-19 respiratory failure. She was admitted. We gave her IV antibiotics, Plaquenil and vitamins and oxygen. Consulted Infectious Disease and Pulmonary. Over the past few days, she returned to her baseline. Today, I saw her and examined her. Heart tones are normal. Lungs are clear. She wants to go home. We plan to discharge and continue isolation for another 10 days. DISPOSITION: Home. ACTIVITY: As tolerated. DIET: Low sodium. MEDICATIONS: Please see MRAD. TOTAL TIME: 32 minutes. HEMA ROSADO DO DR: SALVADOR/elizabeth JOB#: [id number] / [id number]
--- NOTE | 2019-11-16 12:30 | NUR ---
Dr. Hernandez on the unit, notified of meds for d/c home not yet addressed. Stated he would address them.
--- NOTE | 2019-11-16 14:46 | NUR ---
Dr. Hernandez paged re: d/c meds for home being addressed.
--- NOTE | 2019-11-16 15:56 | NUR ---
While working with PT, pt c/o feeling lightheaded. Sitting BP 185/83, standing BP 124/66. Dr. David barrera.
--- NOTE | 2019-11-16 16:21 | NUR ---
Pt. states she is feeling a little better, just weak and feeling her normal sciatica pain in LLE. Sitting BP 156/73,HR 96, standing 145/76, HR 103. Pt. states she feels comfortable going home today. Dr. Hernandez notified of status, no new telephone orders received. Pt. to d/c home today.
--- NOTE | 2019-11-16 16:59 | PDOC ---
PULMONARY PROGRESS NOTES Subjective Patient feels better, ready to be discharged, Vitals Vital Signs Date Time Temp Pulse Resp B/P (MAP) Pulse Ox O2 Delivery O2 Flow Rate FiO2 11/16/19 11:00 98.4 94 18 142/77 (98) 95 Room Air 98.4 11/16/19 07:40 95.0 ROS: No Nausea, No Abdominal Pain, No Increase Cough Lungs: Crackles Cardiovascular: S1, S2 Neuro Exam: Alert Extremities: No Edema Skin: Warm Medications Active Scripts Medications Dose Route/Sig Max Daily Dose Days Date Category Medrol (Methylprednisolone) 4 Mg Tab.ds.pk 1 Pkg PO UD 09/10/19 Rx Orphenadrine Citrate 100 Mg Tablet.er 1 Tab PO BID 12/04/18 Rx Naproxen 375 Mg Tablet 1 Tab PO BID 12/04/18 Rx Lisinopril 10 Mg Tablet 10 Mg PO DAILY 30 10/19/18 Rx Amlodipine Besylate 10 Mg Tablet 10 Mg PO DAILY 30 10/19/18 Rx Aspirin Ec (Aspirin) 81 Mg Tablet.dr 1 Tab PO DAILY 10/17/18 Reported Omeprazole 40 Mg Capsule.dr 1 Cap PO DAILY 10/17/18 Reported Dicyclomine Hcl 20 Mg Tablet 1 Tab PO PRN TID PRN 10/17/18 Reported Women's Daily Multivitamin (Multivit With Calcium,Iron,Min) 1 Each Tablet 1 Each PO DAILY 08/30/13 Reported Impression . IMPRESSION: 1. Progressive dyspnea secondary to COVID-19. 2. COVID-19 viral pneumonia. 3. Hypertensive urgency. 4. Fever. 5. History of chronic heart failure. 6. Gastroesophageal reflux. Causing chest tightness Plan . Does not require oxygen supplementation, Follow-up in my office in 4 weeks Stay at home for the next 7 days, monitor temperature at home for the next 3 days TAVARES BAH MD Nov 16, 2019 16:59
--- NOTE | 2019-11-16 17:10 | NUR ---
pt. discharged to home with Rx, verbalized understanding of discharge instructions.
== END 2019-11-16 17:11 | disposition home or self-care (01) | DRG 177 ==
LOC: ER 11:04 → 6 SOUTH 15:44
PROVIDERS: ADMIT Family Medicine; ATTEND Family Medicine
DX: U07.1 COVID-19 (principal); J12.89 Other viral pneumonia; J96.90 Respiratory failure, unspecified, unspecified whether with hypoxia or hypercapnia; I48.20 Chronic atrial fibrillation, unspecified; I16.0 Hypertensive urgency; E78.5 Hyperlipidemia, unspecified; G62.9 Polyneuropathy, unspecified; I11.0 Hypertensive heart disease with heart failure; I50.9 Heart failure, unspecified; J20.8 Acute bronchitis due to other specified organisms; K21.9 Gastro-esophageal reflux disease without esophagitis; K57.90 Diverticulosis of intestine, part unspecified, without perforation or abscess without bleeding; M19.90 Unspecified osteoarthritis, unspecified site; Z78.9 Other specified health status; Z82.49 Family history of ischemic heart disease and other diseases of the circulatory system; Z85.01 Personal history of malignant neoplasm of esophagus; Z96.653 Presence of artificial knee joint, bilateral; G56.03 Carpal tunnel syndrome, bilateral upper limbs; Z90.49 Acquired absence of other specified parts of digestive tract; Z88.5 Allergy status to narcotic agent; Z88.8 Allergy status to other drugs, medicaments and biological substances; Z91.041 Radiographic dye allergy status
CPT/HCPCS: 36415; 71045; 80053; 81001; 82962; 83605; 83690; 83880; 84484; 85025; 87040; 93005; 94618; 94640; 96374; J0360; J0456; J1650; J2543; 99285-25; G0378

== ENCOUNTER → 2020-05-20 | Outpatient (CLI) | payer MEDICARE ==
[~2020-05-20] MED LIST changes: +AMLO-186 PO; +AMLO-187 PO; -AMLO10TA8 PO; -AMLO5TAB10 PO; -ASPI-612 PO; +ASPI-886 PO; +REGADENOSON 0.4 MG/5 ML DISP.SYRIN. IV ONE; +WARF1TAB2 PO; -WARF1TAB74 PO
--- NOTE | 2020-05-21 12:05 | RAD ---
MR#: [id number] Date of Study: 05/21/2020 Ordering Physician: MASTER PURVIS, Referring Physician: SUMEET MUÑIZ Tech: RT Stephanie (R) (N) APPROVED REPORT Test Type: Pharmacological Stress Nurse/Tech: Marissa Forrester R.N. Test Indications: dyspnea Cardiac History: Family history, Hypertension Medications: See Electronic Medical Record Medical History: See Electronic Medical Record Resting ECG: NSR with occ PVC Resting Heart Rate: 79 bpm Resting Blood Pressure: 167/65mmHg Pretest Chest Pain: No chest pain Nurse/Tech Notes S1S2, lungs sound clear Consent: The procedure was explained to the patient in lay terms. Informed consent was witnessed. Jose eout was entered into [employer]. History and Stress Test performed by Marissa Forrester R.N. Pharm. Details Pharmacologic stress testing was performed using 0.4mg per 5ml of regadenoson given intravenously ove r 7-10 seconds. Stress Symptoms No chest pain or symptoms. POST EXERCISE Reason for Termination: Infusion complete Target HR: 124 Max HR: 100 bpm Max Blood Pressure: 171/64mmHg Blood Pressure response to exercise: Normal blood pressure response during stress. Chest Pain: No. Arrhythmia: Yes. cont. to have occ PVC ST Change: No. INTERPRETATION Stress EKG Conclusion: The resting EKG shows a sinus rhythm with nonspecific ST-T wave changes. The stress EKG shows no significant changes from baseline. No EKG evidence of stress-induced ischemia. Imaging Protocol IMAGE PROTOCOL: Rest Tc-99m/stress Tc-99m 2 days Rest: Stress: Viability: Radiopharm.Tc99m DplgzrzkkWq66s Sestamibi Mduf16fXi 31mCi Duration 15min. 15min. Img Date 05/20/2020 05/21/2020 Inj-Img Xbgk91nnt. 60min. Rest Admin Site:IV - Left AntecubitalAdministrator:RT Stephanie (R)(N) Stress Admin Site: IV - Left AntecubitalAdministrator: RT Stephanie (R)(N) STRESS DATA End Diast. Vol.89.0mlLVEDV index BSA44.0ml End Syst. Vol.29.0mlLVESV index BSA14.0ml Myocardial Vnhd502.0gEject. Cwdbtgsc69.0% Stress Scores Regional WT1.00Summed WT4.00 Regional WM0.00Summed WM1.00 LV Perfusion The stress scans showed no significant defects. The rest scans showed no significant defects. Nuclear imaging shows no reversible ischemia or infarct. Wall Motion Left ventricular systolic function is normal with no regional wall motion abnormalities, and ejection fraction of 70% and a TID of 1.13. LV Perf. Quant 17 Seg. SSS0.00 17 Seg. SRS0.00 17 Seg. SDS0.00 Stress Defect Extent (% LAD)0.00Rest Defect Extent (% LAD)0.00Rev. Defect Extent (% LAD)0.00 Stress Defect Extent (% LCX) 3.80Rest Defect Extent (% LCX)22.50Rev. Defect Extent (% LCX)0.00 Stress Defect Extent (% RCA)0.00Rest Defect Extent (% RCA)0.00Rev. Defect Extent (% RCA)0.00 Stress Defect Extent (% ALVINO)0.70Rest Defect Extent (% ALVINO)3.90Rev. Defect Extent (% ALVINO)0.00 Conclusion 1. No EKG evidence of stress-induced ischemia. 2. Nuclear imaging shows no reversible ischemia or infarct. 3. Left ventricular systolic function is normal with an ejection fraction of 70%. 4. Low risk Lexiscan nuclear stress test. Signed by : Ventura Alex MD Electronically Approved : 05/21/2020 12:04:34
== END ==
LOC: NM 07:36
PROVIDERS: ATTEND Internal Medicine Cardiovascular Disease
DX: I10 Essential (primary) hypertension (principal)
CPT/HCPCS: 78452; A9500; 93017; J2785

== ENCOUNTER → 2020-05-21 | Outpatient (CLI) | payer MEDICARE ==
[~2020-05-21] MED LIST changes: -REGADENOSON 0.4 MG/5 ML DISP.SYRIN. IV ONE
--- NOTE | 2020-05-21 11:52 | CARD ---
MR#: [id number] Date of Study: 05/21/2020 Ordering Physician: MASTER PURVIS, Referring Physician: MASTER PURVIS, Tech: Grazyna Lopez BAILEY APPROVED REPORT EXAM: Two-dimensional and M-mode echocardiogram with Doppler and color Doppler. Other Information Quality : Good Rhythm : NSRAtrial FibrillationAtrial FlutterAPC'sPVC'sBradycardiaTachycardiaLBBBRBBBPacemaker INDICATION Dyspnea 2D DIMENSIONS RVDd2.9 (2.9-3.5cm)Left Atrium(2D)3.8 (1.6-4.0cm) IVSd1.0 (0.7-1.1cm)Aortic Root(2D)2.9 (2.0-3.7cm) LVDd4.9 (3.9-5.9cm)LVOT Diameter2.0 (1.8-2.4cm) PWd1.0 (0.7-1.1cm)LVDs3.3 (2.5-4.0cm) FS (%) 32.9 %SV70.1 ml LVEF(%)60.0 (>50%) Aortic Valve AoV Peak Paulino.161.5cm/sAoV VTI30.0cm AO Peak GR.10.4mmHgLVOT Peak Paulino.98.0cm/s AO Mean GR.5mmHgAVA (VMAX)1.83cm2 TATYANA (VTI)2.20cm2 Mitral Valve MV E Rbayqvgg337.1cm/sMV DECEL FZWX726fo MV A Rnnkgawz378.9cm/sE/A Ratio0.9 Tricuspid Valve TR P. Dnuufvkc790gx/sRAP YOXFSFBN4yfJg TR Peak Gr.09mgEmDPOH89ckLv Pulmonary Vein S1 Owipuwvm20.3cm/sD2 Wrbceuzg18.7cm/s LEFT VENTRICLE The left ventricle is normal size. There is normal left ventricular wall thickness. The left ventricu lar systolic function is normal and the ejection fraction is within normal range. The Ejection Fracti on is 55-60%. There is normal LV segmental wall motion. Transmitral Doppler flow pattern is Grade I-a bnormal relaxation pattern. RIGHT VENTRICLE The right ventricle is normal size. The right ventricular systolic function is normal. ATRIA The left atrium size is normal. The right atrium size is normal. The interatrial septum is intact wit h no evidence for an atrial septal defect or patent foramen ovale as noted on 2-D or Doppler imaging. AORTIC VALVE The aortic valve is calcified but opens well. Doppler and Color Flow revealed no significant aortic r egurgitation. There is no significant aortic valvular stenosis. MITRAL VALVE The mitral valve is calcified but opens well. Mitral annular calcification is mild. There is no evide nce of mitral valve prolapse. There is no mitral valve stenosis. Doppler and Color-flow revealed mild mitral regurgitation. TRICUSPID VALVE The tricuspid valve is normal in structure and function. Doppler and Color Flow revealed trace to mil d tricuspid regurgitation. The PA pressure was estimated at 33 mmHg. There is no tricuspid valve sten osis. PULMONIC VALVE The pulmonic valve is not well visualized. Doppler and Color Flow revealed no pulmonic valvular regur gitation. There is no pulmonic valvular stenosis. GREAT VESSELS The aortic root is normal in size. The ascending aorta is normal in size. The IVC is normal in size a nd collapses >50% with inspiration. PERICARDIAL EFFUSION There is no evidence of significant pericardial effusion. Critical Notification Critical Value: No <Conclusion> The left ventricle is normal size. The left ventricular systolic function is normal and the ejection fraction is within normal range. The Ejection Fraction is 55-60%. Doppler and Color Flow revealed no significant aortic regurgitation. There is no significant aortic valvular stenosis. Doppler and Color-flow revealed mild mitral regurgitation. Doppler and Color Flow revealed trace to mild tricuspid regurgitation. The PA pressure was estimated at 33 mmHg. Signed by : Ventura Alex MD Electronically Approved : 05/21/2020 11:52:22
== END ==
LOC: ECHO 11:00
PROVIDERS: ATTEND Internal Medicine Cardiovascular Disease
DX: I08.3 Combined rheumatic disorders of mitral, aortic and tricuspid valves (principal); I10 Essential (primary) hypertension
CPT/HCPCS: 93306

== ENCOUNTER → 2021-09-28 | Outpatient (CLI) | payer MEDICARE ==
[~2021-09-28] MED LIST changes: +DICY20TA PO; -DICY20TA3 PO; +LISI10TA16 PO; -LISI10TA2 PO; -OMEP40CA45 PO; +OMEP40CA7 PO
--- NOTE | 2021-09-28 09:33 | RAD ---
Study: CT abdomen/pelvis without intravenous contrast Indication: Diverticulosis. Comparison: 10/17/2018 Technique: Helical CT imaging performed of the abdomen and pelvis without the use of intravenous cont rast. Sagittal and coronal reformats were obtained. One or more of the following individualized dose reduction techniques were utilized for this examinat ion: 1. Automated exposure control 2. Adjustment of the mA and/or kV according to patient size 3. Use of iterative reconstruction technique. Findings: Inherently limited evaluation without intravenous contrast. Rounded pleural-based groundglass opacity within the right lower lobe measuring 2.2 cm transverse. Un remarkable partially imaged mediastinal contents. A few subcentimeter hypoattenuating foci within the liver were present on the comparison. Stability o pola time indicates a benign etiology. Absent gallbladder. Unchanged dilatation of the common duct typ ical of reservoir effect. Within normal limits pancreas and spleen. Unchanged adrenal gland morpholog y. Unremarkable kidneys. No collecting system dilatation. No localized bladder wall thickening. Within n ormal limits uterus and adnexa. Colonic diverticulosis without diverticulitis. Unremarkable appendix. Nonobstructed small bowel. Unre markable stomach. Scattered calcific atherosclerosis. Nonaneurysmal abdominal aorta. No lymphadenopathy. No free fluid or pneumoperitoneum. Mild body wall edema. Degenerative changes at the hips, pubic symphysis and sacroiliac joints. No acute or aggressive abnor mality. Impression: 1. Colonic diverticulosis without diverticulitis. 2. Rounded groundglass opacity pleural-based at the right lower lobe measuring up to 2.2 cm transver se. Considerations include an active or resolving infectious/inflammatory process or evolving round a telectasis. Follow-up could be performed in 6 to 12 months depending on patient risk factors for lung malignancy. 3. Additional chronic/unchanged observations outlined in the body of the report. Electronically signed by: CHANEL CA MD (09/28/2021 9:30 AM) [facility]
== END ==
LOC: CT 08:45
PROVIDERS: ATTEND Family Medicine
DX: K57.30 Diverticulosis of large intestine without perforation or abscess without bleeding (principal); R91.8 Other nonspecific abnormal finding of lung field; R60.9 Edema, unspecified; M16.0 Bilateral primary osteoarthritis of hip
CPT/HCPCS: 74176